=== PATIENT | female | born 1960 | race Caucasian/White ===

== ENCOUNTER → 2020-12-09 18:18 | Outpatient (CLI) | payer MEDICAID, SELFPAY ==
[2020-12-09 20:33] LABS: Alanine Aminotransferase 23 U/L (12-78); Albumin Level 4.1 g/dl (3.5-5.0); Albumin/Globulin Ratio 1.4 (1.1-1.8); Alkaline Phosphatase 92 U/L (38-126); Aspartate Amino Transferase 30 U/L (14-36); Bilirubin,Total 0.3 mg/dl (0.2-1.3); Blood Urea Nitrogen 20 mg/dl (7-17); Calcium 9.7 mg/dl (8.4-10.2); Carbon Dioxide 26 mmol/L (22.0-30.0); Chloride 106 mmol/L (98-107); Chol/HDL Ratio 1.8 (1-3.5); Cholesterol 156 mg/dl (140-200); Estimated Glomerular Filt Rate 102 ml/min (>60); GFR (African American) 123 ML/MIN (>60); Glucose 110 mg/dl (74-100); HDL Cholesterol 87 mg/dl (40-60); Sodium 139 mmol/L (136-145); Total Protein,Serum 7.1 g/dl (6.3-8.2); Triglycerides 46 mg/dl (30-150); VLDL Cholesterol 9 mg/dL (0-40)
[2020-12-09 20:44] LABS: Direct LDL Cholesterol 49.23 mg/dL (100-129)
[2020-12-09 20:51] LABS: Basophils # 0.1 K/mm3 (0-0.2); Basophils % 1.3 % (0.1-2.0); Eosinophils # 0.3 K/mm3 (0.0-0.4); Eosinophils % 3.3 % (0.1-12.0); Hematocrit 40.8 % (37.0-47.0); Hemoglobin 12.9 g/dL (12.2-16.2); Lymphocytes # 2.6 K/mm3 (0.7-4.5); Lymphocytes % 32.1 % (10-50); Mean Corpuscular HGB Conc 31.5 g/dL (31.8-35.4); Mean Corpuscular Volume 101.5 fl (81-99); Mean Platelet Volume 12.4 fl (7.4-10.4); Monocytes # 0.7 K/mm3 (0.1-1.0); Neutrophils # 4.5 K/mm3 (1.8-7.8); Neutrophils % 55.2 % (37.0-80.0); Platelet Count 330 K/mm3 (142-424); Red Blood Count 4.02 M/mm3 (4.20-5.40); Red Cell Distribution Width 14.7 % (11.5-17.5); White Blood Count 8.1 K/mm3 (4.8-10.8)
== END ==
PROVIDERS: Visit Provider Family Medicine
DX: I25.10 Atherosclerotic heart disease of native coronary artery without angina pectoris (principal)
CPT/HCPCS: 80053; 80061; 85025

== ENCOUNTER 2021-10-05 09:28 | Day surgery (SDC) | payer MEDICAID, SELFPAY ==
[2021-10-05] VITALS (14 sets, daily range): BP systolic 102–136; BP diastolic 53–81; PULSE 45–68; RESP 18–19; O2SAT 91–100; BMI 25.9
--- NOTE | 2021-10-05 | IR_ITS ---
APPROVED REPORT Patient Location: Outpatient Sorter/Assay Tech: ANISH Ronquillo RT (R) PROCEDURES Left heart catheterization Left ventriculogram Selective coronary angiogram Left internal mammary angiography Selective engagement saphenous vein graft to the circumflex artery Select engage the saphenous vein graft to the right coronary INDICATION History of coronary bypass surgery, Preoperative evaluation, Abnormal Myoview Informed consent was obtained prior to the procedure. COMPLICATIONS NONE Estimated Blood Loss: LESS THAN 10 ML TECHNIQUE One percent lidocaine used to anesthetize the right groin. The right femoral artery was accessed via the Seldinger technique and a 5 Azerbaijani sheath was placed in the right femoral artery. A JL 4, JR4 catheter were used to perform left heart catheterization, left ventriculogram selective coronary angiography as well as selective engagement of the 2 vein grafts and the left internal mammary artery. At the end of the procedure the patient was transferred to the postop holding area in stable condition for sheath removal. At the end the diagnostic angiogram therapeutic heparin was administered giving a therapeutic ACT and the 4 Azerbaijani sheath was exchanged for a 6 Azerbaijani sheath. An EBU 3.5 guide catheter was placed in the left main artery and a Choice PT extra-support wire was placed distally in the LAD. A 2.5 x 18 mm resolute Dover stent was deployed at 20 mark reducing the severe stenosis to 0%. MIGUEL-3 flow was present before and after the procedure. At the end of the procedure the apparatus was removed the groin was reprepped closure changed sheath was removed good hemostasis was achieved using Perclose device patient transferred to the postop putting her stable condition ANGIOGRAPHIC RESULTS The left main artery Normal The left anterior descending artery Has proximal concentric calcified 30% stenoses followed by mid vessel 40% stenosis followed by a 10 mm focal 90% stenosis with remaining the LAD widely patent. The first diagonal artery has an ostial 80 to 90% stenosis. There is no competitive flow from the left internal mammary artery The circumflex artery Nondominant and proximally occluded. There is a moderate sized ramus intermedius which is patent and a long vessel which has mild proximal 10 to 20% stenoses The right coronary artery Is a dominant vessel and proximally occluded The GREGORY ventriculogram reveals Preserved at 55% The left ventricular end-diastolic pressure 10 mmHg The left internal mammary artery is physiologically proximally occluded The saphenous vein graft to the circumflex arteries widely patent Saphenous vein graft to the dominant right coronary is widely patent IMPRESSION Coronary disease as described above Successful stenting of the mid LAD severe disease reduced to 0% with 1 drug-eluting stent Persistent severe disease in a large first diagonal artery which is best managed medically Preserved ejection fraction Normal left ventricular end-diastolic pressure PLAN 1. Dual antiplatelet therapy 2. Postponement of elective herniorrhaphy surgery 3. LDL less than 55 4. Standard therapy for ischemic heart disease Electronically signed by : Peewee Stephens MD 10/05/2021 13:08:26
[2021-10-05 09:17] LABS: Coronavirus 19, PCR Not Detected (NotDetected); Influenza A, PCR Not Detected (NotDetected); Influenza B, PCR Not Detected (NotDetected)
[2021-10-05 09:22] LABS: Basophils # 0.1 K/mm3 (0-0.2); Basophils % 1.4 % (0.1-2.0); Eosinophils # 0.5 K/mm3 (0.0-0.4); Eosinophils % 6.8 % (0.1-12.0); Hematocrit 42.9 % (37.0-47.0); Hemoglobin 13.6 g/dL (12.2-16.2); Lymphocytes # 2.9 K/mm3 (0.7-4.5); Lymphocytes % 39.4 % (10-50); Mean Corpuscular HGB Conc 31.8 g/dL (31.8-35.4); Mean Corpuscular Hemoglobin 32.2 pg (27.0-31.2); Mean Corpuscular Volume 101.2 fl (81-99); Mean Platelet Volume 7.9 fl (7.4-10.4); Monocytes # 0.5 K/mm3 (0.1-1.0); Monocytes % 6.8 % (1.7-9.3); Neutrophils # 3.4 K/mm3 (1.8-7.8); Neutrophils % 45.7 % (37.0-80.0); Platelet Count 340 K/mm3 (142-424); Red Blood Count 4.24 M/mm3 (4.20-5.40); Red Cell Distribution Width 14.1 % (11.5-17.5); White Blood Count 7.4 K/mm3 (4.8-10.8)
[2021-10-05 09:50] LABS: Anion Gap 10.2 mEq/L (5-15); Blood Urea Nitrogen 21 mg/dl (7-17); Calcium 9.7 mg/dl (8.4-10.2); Carbon Dioxide 28 mmol/L (22.0-30.0); Chloride 106 mmol/L (98-107); Creatinine Clearance Estimated 60 mL/min (50-200); Estimated Glomerular Filt Rate 125 ml/min (>60); GFR (African American) 152 ML/MIN (>60); Glucose 111 mg/dl (74-100); Potassium 5.2 mmoL/L (3.5-5.1); Sodium 139 mmol/L (136-145)
[2021-10-05 14:08] LABS: CATHL Activated Clotting Time 302 SEC (74-125)
--- NOTE | 2021-10-05 15:08 | HMH.PHACLD ---
Siena Virginie has received discharge medication counseling on the following medications: -ASA -ATORVASTATIN -BRILINTA (DISCUSSED HOW TO TAKE, WATCH FOR SIGNS OF BLEEDING, BRUISING, SEEK CARE IF YOU BUMP YOUR HEAD)
== END 2021-10-05 15:16 | disposition home or self-care (01) ==
LOC: CATHLAB 09:29
PROVIDERS: Nurse Practitioner Family; PCP Family Medicine; Referring Provider Specialist; Visit Provider Internal Medicine
DX: I11.9 Hypertensive heart disease without heart failure (principal); E78.2 Mixed hyperlipidemia; I25.10 Atherosclerotic heart disease of native coronary artery without angina pectoris; Z95.1 Presence of aortocoronary bypass graft; Z79.899 Other long term (current) drug therapy; Z20.822 Contact with and (suspected) exposure to COVID-19
CPT/HCPCS: 36415; 80048; 85025; 85347; 92928; 93459; 99152; C1725; C1760; C1769; C1876; C1894; C9600; C9803; J1644; Q9967; U0003; U0005

== ENCOUNTER → 2021-10-19 08:58 | Outpatient (CLI) | payer MEDICAID, SELFPAY ==
[2021-10-19 09:18] LABS: Basophils # 0.1 K/mm3 (0-0.2); Basophils % 1.5 % (0.1-2.0); Eosinophils # 0.4 K/mm3 (0.0-0.4); Hematocrit 44.5 % (37.0-47.0); Hemoglobin 14.3 g/dL (12.2-16.2); Lymphocytes # 2.8 K/mm3 (0.7-4.5); Mean Corpuscular HGB Conc 32.2 g/dL (31.8-35.4); Mean Corpuscular Hemoglobin 31.3 pg (27.0-31.2); Mean Platelet Volume 7.6 fl (7.4-10.4); Monocytes # 0.4 K/mm3 (0.1-1.0); Monocytes % 6.2 % (1.7-9.3); Neutrophils # 3.5 K/mm3 (1.8-7.8); Neutrophils % 48.3 % (37.0-80.0); Platelet Count 447 K/mm3 (142-424); Red Blood Count 4.58 M/mm3 (4.20-5.40); Red Cell Distribution Width 14.4 % (11.5-17.5); White Blood Count 7.2 K/mm3 (4.8-10.8)
[2021-10-19 09:25] LABS: Chloride 105 mmol/L (98-107); Sodium 142 mmol/L (136-145)
[2021-10-19 09:26] LABS: Potassium 5.2 mmoL/L (3.5-5.1)
[2021-10-19 09:29] LABS: Anion Gap 13.2 mEq/L (5-15); Blood Urea Nitrogen 21 mg/dl (7-17); Calcium 9.8 mg/dl (8.4-10.2); Carbon Dioxide 29 mmol/L (22.0-30.0); Estimated Glomerular Filt Rate 125 ml/min (>60); GFR (African American) 152 ML/MIN (>60); Glucose 117 mg/dl (74-100)
== END ==
PROVIDERS: Visit Provider Internal Medicine
DX: I25.10 Atherosclerotic heart disease of native coronary artery without angina pectoris (principal); Z95.5 Presence of coronary angioplasty implant and graft
CPT/HCPCS: 36415; 80048; 85025

== ENCOUNTER → 2022-01-08 17:01 | Outpatient (CLI) | payer MEDICAID, SELFPAY ==
[2022-01-08 14:45] LABS: Alanine Aminotransferase 37 U/L (12-78); Albumin Level 4.9 g/dl (3.5-5.0); Albumin/Globulin Ratio 1.6 (1.1-1.8); Alkaline Phosphatase 102 U/L (38-126); Anion Gap 14.1 mEq/L (5-15); Aspartate Amino Transferase 42 U/L (14-36); Bilirubin,Total 0.4 mg/dl (0.2-1.3); Blood Urea Nitrogen 26 mg/dl (7-17); Calcium 9.6 mg/dl (8.4-10.2); Carbon Dioxide 25 mmol/L (22.0-30.0); Chloride 106 mmol/L (98-107); Chol/HDL Ratio 1.8 (1-3.5); Cholesterol 193 mg/dl (140-200); Estimated Glomerular Filt Rate 125 ml/min (>60); GFR (African American) 152 ML/MIN (>60); Glucose 105 mg/dl (74-100); HDL Cholesterol 108 mg/dl (40-60); Potassium 5.1 mmoL/L (3.5-5.1); Sodium 140 mmol/L (136-145); Total Protein,Serum 7.9 g/dl (6.3-8.2); Triglycerides 43 mg/dl (30-150); VLDL Cholesterol 9 mg/dL (0-40)
== END ==
PROVIDERS: Visit Provider Family Medicine
DX: Z00.00 Encounter for general adult medical examination without abnormal findings (principal); I11.9 Hypertensive heart disease without heart failure; E78.5 Hyperlipidemia, unspecified
CPT/HCPCS: 80053; 80061

== ENCOUNTER → 2023-02-07 23:23 | Outpatient (CLI) | payer MEDICAID, SELFPAY ==
[2023-02-07 19:34] LABS: Chol/HDL Ratio 2.1 (1-3.5); Cholesterol 170 mg/dl (140-200); HDL Cholesterol 82 mg/dl (40-60); Triglycerides 52 mg/dl (30-150); VLDL Cholesterol 10 mg/dL (0-40)
[2023-02-07 19:45] LABS: Direct LDL Cholesterol 61.26 mg/dL (100-129)
== END ==
PROVIDERS: PCP Family Medicine; Visit Provider Family Medicine
DX: E78.5 Hyperlipidemia, unspecified (principal)
CPT/HCPCS: 80061

== ENCOUNTER → 2023-05-13 12:01 | Outpatient (CLI) | payer MEDICAID, SELFPAY ==
--- NOTE | 2023-05-13 | CA_ITS ---
APPROVED REPORT Exam: Exercise Treadmill Technologist: Astrid Bhatti, Ht: 5 ft 2 in Wt: 152 lbs BSA: 1.70 m2 HR: 65 bpm BP: 147/72 mmHg Rhythm: Normal sinus rhythm Medical History Medical History: HTN, , Hyperlipidemia Medications: Aspirin,,,,, Diazepam,,,,, Atorvastatin,,,,, Vit B12,,,,, Ezetimbe,,,,, TicaAGRELOR,,,,, Allergies: No known drug allergies Cardiac Risk Factors: HTN, Hyperlipidemia, Smoking Stress Test Details Test: Armando HR Resting HR: 70 bpm Max Heart Rate (APMHR): 158 bpm Max HR Achieved: 163 bpm Target HR (85% APMHR): 134 bpm % of APMHR: 103 Recovery HR: 86 bpm HR response to stress: Normal HR response to stress BP Resting BP: 147.0/72 mmHg Max BP: 209/93 mmHg Recovery BP: 148.0/72.0 mmHg BP response to stress: Abnormal hypertensive response to stress. ECG Resting ECG: Normal sinus rhythm, nonspecific ST changes in the inferior leads Stress ECG: Wide-complex tachycardia Clinical Exercise duration: 05:58 min Highest Stage Achieved: Exercise capacity: 7.0 METs Overall Exercise Capacity for Age: Average Stress ECG Conclusion MAX HR: 163 % OF PM: 103 MAX BP: 209/93 METS:7.0 TEST STOPPED DUE TO DYSPNEA The patient was able to exercise for 5 minutes and 58 seconds, achieving 7.0 METS. She had an average exercise capacity compared to sex and age matched peers. During stress, she developed an exaggerated hypertensive response to exercise. At baseline, ECG demonstrated normal sinus rhythm with nonspecific T wave changes in the inferior leads. At peak stress, she developed wide-complex tachycardia (which may possibly represent rate-related LBBB, but cannot rule out VT). Subsequently, the exercise was terminated. Stress ECG is suggestive of ischemia. Myoview images are reported separately. Test Summary REST . . . . . . . Standing REST . . . . . . . Sitting REST 03:54 0.0 0.0 70 . 147/ 72 . . Stage 1 01:00 10.0 1.7 96 . . . . Stage 1 02:00 10.0 1.7 126 . . . . Stage 1 03:00 10.0 1.7 135 . 160/ 78 . . Stage 2 01:00 12.0 2.5 146 . . . . Stage 2 02:00 12.0 2.5 161 . . . . Stage 2 02:58 12.0 2.5 154 . 190/ 70 . Stop exercise at 05:58 RECOVERY 01:00 0.0 0.0 146 . . . . RECOVERY 02:00 0.0 0.0 127 . . . . RECOVERY 03:00 0.0 0.0 95 . 198/ 89 . . RECOVERY 04:00 0.0 0.0 84 . 198/ 89 . . RECOVERY 05:00 0.0 0.0 89 . 183/ 71 . . RECOVERY 06:00 0.0 0.0 85 . 183/ 71 . . RECOVERY 07:00 0.0 0.0 90 . 156/ 69 . . RECOVERY 08:00 0.0 0.0 85 . 148/ 72 . . RECOVERY 08:08 0.0 0.0 89 . 148/ 72 . . Electronically signed by : Linsey Hunter, 05/16/2023 02:16:15
--- NOTE | 2023-05-13 12:01 | NM_ITS ---
APPROVED REPORT Exam: Nuclear Stress Test Indication: palpitations..fatigue Patient Location: Outpatient Stress Tech: Astrid Bhatti [place] Tech:Jennifer Ng FIDELFabby RT(R)(N) Ht: 5 ft 2 in Wt: 151 lbs Bra Size: 40d HR: 70 bpm BP: 147/72 mmHg BSA: 1.70 m2 Rhythm: Normal sinus rhythm TID: 1.01 BMI: 27.6 History: palpitations..fatigue Procedure: Patient exercised on Armando protocol 5:58 minutes and sec, resting heart rate 70 bpm, resting blood pressure 147/72 mmHg, with exercise maximum heart rate achived was 163 bpm which is 103 % of the maximum predicted heart rate and blood pressure was 209/93 mmHg. Test was stopped due to fatigue. Patient denied any complaint of chest pain. Patient has Average exercise capacity, achieved 7.0 METs of workload on treadmill, the blood pressure response to exercise was Exaggerated. Cardiac Stress and Resting SPECT Images: Cardiac Stress and Resting SPECT images were obtained using technetium 99m Myoview 32.4 mCi stress and 10.94 mCi at rest. Resting and stress imaging in both supine and prone positions demonstrate a medium sized, moderate, partially reversible perfusion defect in the mid to distal anterior and anteroseptal LV wall. Gated imaging demonstrates mild to moderate reduction in global LV systolic function. There is moderate hypokinesis in the anterior and anteroseptal LV wall. LVEF is calculated at 40%. Conclusion: Medium sized, moderate, partially reversible perfusion defect in the mid to distal anterior and anteroseptal LV wall. Gated imaging demonstrates mild to moderate reduction in global LV systolic function. There is moderate hypokinesis in the anterior and anteroseptal LV wall. LVEF is calculated at 40%. Electronically signed by : Linsey Hunter, 05/16/2023 02:22:50
== END ==
PROVIDERS: PCP Family Medicine; Visit Provider Nurse Practitioner Family
DX: I25.10 Atherosclerotic heart disease of native coronary artery without angina pectoris (principal); R53.83 Other fatigue; Z95.1 Presence of aortocoronary bypass graft
CPT/HCPCS: 78452; 93017; 93306; A9502

== ENCOUNTER 2023-05-25 08:59 | Day surgery (SDC) | payer MEDICAID, SELFPAY ==
[2023-05-25] VITALS (11 sets, daily range): BP systolic 116–136; BP diastolic 59–76; PULSE 53–87; RESP 18–20; TEMP 37; O2SAT 97–100; BMI 28.0
--- NOTE | 2023-05-25 07:12 | IR_ITS ---
APPROVED REPORT Patient Location: Outpatient PROCEDURES Left heart catheterization Left ventriculogram Selective coronary angiogram Selective engagement saphenous vein graft to circumflex artery Selective engagement saphenous vein graft to the right coronary INDICATION Coronary artery disease, Worsening angina pectoris, History of coronary bypass surgery, Informed consent was obtained prior to the procedure. COMPLICATIONS None Estimated Blood Loss: Less than 10 mls TECHNIQUE One percent lidocaine used to anesthetize the right anterior aspect of the wrist. The right radial artery was accessed via the Seldinger technique. A 6 Thai sheath was placed in the right radial artery. 150 mg magnesium sulfate, 800 mcg of nitroglycerin, 1mg Lidocaine and 5000 U Heparin were given through the arterial sheath. The papa catheter was also used to perform left heart catheterization, left ventriculogram and selective coronary angiogram. The same catheter was used to perform selective engagement of the saphenous vein graft to the circumflex artery and right coronary. At the end of the procedure the sheath was removed good hemostasis was achieved using Traclet band, patient was transferred to the postop holding area in stable condition. ANGIOGRAPHIC RESULTS The left main artery Normal The left anterior descending artery Has proximal 20 to 30% stenosis followed by mid vessel stents which are widely patent with minimal in-stent restenosis. A large first diagonal artery has proximal concentric 40% stenosis. The vessel was 2.5 mm in diameter The circumflex artery Is a nondominant vessel and gives rise to a moderate-sized first obtuse marginal artery which has mild atheromatous plaque nothing greater than 30%. The circumflex artery is then occluded after the ramus intermedius The right coronary artery Proximally occluded The GREGORY ventriculogram reveals Mild left ventricular dilatation ejection fraction 45% The left ventricular end-diastolic pressure 15 mmHg TALAMANTES to LAD is known to be occluded on previous angiography Saphenous vein graft to circumflex artery is widely patent. Distal to the anastomosis is a small solitary obtuse marginal branch Saphenous vein graft to the distal dominant right coronary is widely patent. IMPRESSION Adequate surgical and percutaneous revascularization as described above Mild left ventricular dilatation with ejection fraction 45% Borderline LVEDP PLAN 1. Continue medical management with aggressive risk factor modification Electronically signed by : Peewee Stephens MD 05/25/2023 14:07:47
[2023-05-25 09:55] LABS: Basophils # 0.1 K/mm3 (0-0.2); Basophils % 1.5 % (0.1-2.0); Eosinophils # 0.5 K/mm3 (0.0-0.4); Eosinophils % 7.6 % (0.1-12.0); Hematocrit 45.9 % (37.0-47.0); Lymphocytes # 2.8 K/mm3 (0.7-4.5); Lymphocytes % 39.4 % (10-50); Mean Corpuscular HGB Conc 30.6 g/dL (31.8-35.4); Mean Corpuscular Hemoglobin 30.4 pg (27.0-31.2); Mean Corpuscular Volume 99.6 fl (81-99); Mean Platelet Volume 7.9 fl (7.4-10.4); Monocytes # 0.6 K/mm3 (0.1-1.0); Monocytes % 9.1 % (1.7-9.3); Neutrophils % 42.4 % (37.0-80.0); Platelet Count 346 K/mm3 (142-424); Red Blood Count 4.61 M/mm3 (4.20-5.40); Red Cell Distribution Width 14.5 % (11.5-17.5)
[2023-05-25 09:56] LABS: Chloride 106 mmol/L (98-107); Potassium 4.4 mmoL/L (3.5-5.1); Sodium 141 mmol/L (136-145)
[2023-05-25 09:59] LABS: Anion Gap 12.4 mEq/L (5-15); Blood Urea Nitrogen 22 mg/dl (7-17); Calcium 9.2 mg/dl (8.4-10.2); Carbon Dioxide 27 mmol/L (22.0-30.0); Creatinine Clearance Estimated 64 mL/min (50-200); Estimated Glomerular Filt Rate 101 ml/min (>60); GFR (African American) 123 ML/MIN (>60); Glucose 118 mg/dl (74-100)
[2023-05-25 10:00] LABS: INR 0.95 (0.9-1.1); Prothrombin Time 10.3 seconds (10.1-12.5)
== END 2023-05-25 15:14 | disposition home or self-care (01) ==
PROVIDERS: PCP Family Medicine; Visit Provider Internal Medicine
DX: I25.118 Atherosclerotic heart disease of native coronary artery with other forms of angina pectoris (principal); E78.2 Mixed hyperlipidemia; I11.9 Hypertensive heart disease without heart failure; I44.7 Left bundle-branch block, unspecified; I47.20 Ventricular tachycardia, unspecified; R94.39 Abnormal result of other cardiovascular function study; Z95.1 Presence of aortocoronary bypass graft; Z87.891 Personal history of nicotine dependence; Z79.899 Other long term (current) drug therapy
CPT/HCPCS: 80048; 85025; 85610; 93459; 99152; C1725; C1769; J1644; Q9967

== ENCOUNTER 2024-02-09 21:12 | Outpatient (CLI) | payer MEDICAID, SELFPAY ==
[2024-02-09 18:41] LABS: Basophils # 0.1 K/mm3 (0-0.2); Basophils % 1.2 % (0.1-2.0); Eosinophils # 0.3 K/mm3 (0.0-0.4); Eosinophils % 4.5 % (0.1-12.0); Hemoglobin 14.1 g/dL (12.2-16.2); Mean Corpuscular HGB Conc 31.3 g/dL (31.8-35.4); Mean Corpuscular Volume 102.4 fl (81-99); Mean Platelet Volume 12.9 fl (7.4-10.4); Monocytes # 0.6 K/mm3 (0.1-1.0); Monocytes % 9.1 % (1.7-9.3); Neutrophils # 2.9 K/mm3 (1.8-7.8); Neutrophils % 42.2 % (37.0-80.0); Platelet Count 307 K/mm3 (142-424); Red Cell Distribution Width 14.1 % (11.5-17.5); White Blood Count 6.8 K/mm3 (4.8-10.8)
[2024-02-09 18:48] LABS: Alanine Aminotransferase 27 U/L (12-78); Albumin Level 4.4 g/dl (3.5-5.0); Albumin/Globulin Ratio 1.5 (1.1-1.8); Alkaline Phosphatase 102 U/L (38-126); Anion Gap 9.7 mEq/L (5-15); Aspartate Amino Transferase 38 U/L (14-36); Bilirubin,Total 0.3 mg/dl (0.2-1.3); Blood Urea Nitrogen 27 mg/dl (7-17); Calcium 9.9 mg/dl (8.4-10.2); Carbon Dioxide 27 mmol/L (22.0-30.0); Chloride 107 mmol/L (98-107); Chol/HDL Ratio 2.6 (1-3.5); Cholesterol 225 mg/dl (140-200); Estimated Glomerular Filt Rate 85 ml/min (>60); GFR (African American) 102 ML/MIN (>60); Globulin 2.9 g/dL (1.3-3.2); Glucose 126 mg/dl (74-100); HDL Cholesterol 85 mg/dl (40-60); Potassium 4.7 mmoL/L (3.5-5.1); Sodium 139 mmol/L (136-145); Total Protein,Serum 7.3 g/dl (6.3-8.2); Triglycerides 55 mg/dl (30-150); VLDL Cholesterol 11 mg/dL (0-40)
[2024-02-09 18:59] LABS: Direct LDL Cholesterol 92.65 mg/dL (100-129)
== END 2024-02-09 23:59 ==
LOC: LAB.DROPOF 21:12
PROVIDERS: PCP Family Medicine; Visit Provider Family Medicine
DX: F41.9 Anxiety disorder, unspecified (principal); I25.10 Atherosclerotic heart disease of native coronary artery without angina pectoris; Z79.899 Other long term (current) drug therapy; E78.5 Hyperlipidemia, unspecified
CPT/HCPCS: 80053; 80061; 85025

== ENCOUNTER 2025-02-07 09:38 | Outpatient (CLI) | payer OTHER, SELFPAY ==
[2025-02-07 18:53] LABS: Basophils # 0.1 K/mm3 (0-0.2); Basophils % 1.2 % (0.1-2.0); Eosinophils # 0.1 K/mm3 (0.0-0.4); Eosinophils % 1.5 % (0.1-12.0); Hematocrit 42.6 % (37.0-47.0); Hemoglobin 13.7 g/dL (12.2-16.2); Lymphocytes % 24.8 % (10-50); Mean Corpuscular HGB Conc 32.2 g/dL (31.8-35.4); Mean Corpuscular Hemoglobin 30.8 pg (27.0-31.2); Mean Corpuscular Volume 95.7 fl (81-99); Mean Platelet Volume 13.1 fl (7.4-10.4); Monocytes # 0.8 K/mm3 (0.1-1.0); Monocytes % 9.7 % (1.7-9.3); Neutrophils % 62.6 % (37.0-80.0); Platelet Count 365 K/mm3 (142-424); Red Blood Count 4.45 M/mm3 (4.20-5.40); Red Cell Distribution Width 15.2 % (11.5-17.5); White Blood Count 8.1 K/mm3 (4.8-10.8)
[2025-02-07 19:39] LABS: Albumin Level 4.9 g/dl (3.5-5.0); Chloride 105 mmol/L (98-107); Potassium 5.6 mmoL/L (3.5-5.1); Sodium 138 mmol/L (136-145)
[2025-02-07 20:01] LABS: HIV Combo NEGATIVE (Negative)
[2025-02-07 20:09] LABS: Hepatitis C Ab Qual. W/ RFX NEGATIVE (Negative)
[2025-02-07 20:31] LABS: Thyroid Stimulating Hormone 1.29 uIU/mL (0.465-4.68)
[2025-02-07 21:12] LABS: Alanine Aminotransferase 34 U/L (12-78); Albumin/Globulin Ratio 1.6 (1.1-1.8); Alkaline Phosphatase 112 U/L (38-126); Anion Gap 18.6 mEq/L (5-15); Aspartate Amino Transferase 38 U/L (14-36); Bilirubin,Total 0.2 mg/dl (0.2-1.3); Blood Urea Nitrogen 29 mg/dl (7-17); Carbon Dioxide 20 mmol/L (22.0-30.0); Chol/HDL Ratio 2.5 (1-3.5); Cholesterol 214 mg/dl (140-200); Estimated Glomerular Filt Rate 72 ml/min (>60); GFR (African American) 87 ML/MIN (>60); Glucose 118 mg/dl (74-100); HDL Cholesterol 86 mg/dl (40-60); Total Protein,Serum 7.9 g/dl (6.3-8.2); Triglycerides 60 mg/dl (30-150); VLDL Cholesterol 12 mg/dL (0-40)
[2025-02-07 21:25] LABS: Direct LDL Cholesterol 88.46 mg/dL (100-129)
== END 2025-02-07 23:59 | disposition home or self-care (01) ==
LOC: LAB.DROPOF 02-08 10:12
PROVIDERS: PCP Family Medicine; Visit Provider Family Medicine
DX: R53.83 Other fatigue (principal); I11.9 Hypertensive heart disease without heart failure; E78.2 Mixed hyperlipidemia; Z11.59 Encounter for screening for other viral diseases
CPT/HCPCS: 80053; 80061; 84443; 85025; 86803; 87389

== ENCOUNTER 2025-08-26 10:41 | Outpatient (CLI) | payer MEDICARE, SELFPAY ==
--- OUTSIDE RECORDS SUMMARY | 2025-08-26 10:49 | XMS_ITS | Clinical Summary ---
Author Organization Healthcare Address [address] [id number] Care Team Providers Care Camera Maker Name Role Phone Eliezer Gant MD Primary Care Provider [phone] Family History Medical History Relation Name Comments Conversions - Other Father CAD (cor onary artery disease), [place] coronary artery Diabetes Father Alzheimer's disease Mother Sick sinus syndrome Mother Lung cancer Sister Relation Name Status Comments Father Mother Sister Social History Tobacco Use Types Packs/Day Years Used Date Smoking Tobacco: Every Day Alcohol Use Standard Drinks/Week Comments Yes 0 (1 standard drink = 0.6 oz pur e alcohol) Comments Unknown Sex and Gender Information Value Date Recorded Sex Assigned at Not on file Legal Sex Female 6:27 PM EDT Gender Identity Not on file Sexual Orientation Not on file Last Filed Vital Signs Vital Sign Reading Time Taken Comments Blood Pressure 123/74 05/13/2023 3:04 PM EDT Pulse 77 05/13/2023 3:04 PM EDT Temperature - - Respiratory Rate - - Oxygen Saturation - - Inhaled Oxygen Concentration - - Weight 68.9 kg (152 lb) 05/13/2023 3:04 PM EDT Height 157.5 cm (5' 2 ) 05/13/2023 3:04 PM EDT Body Mass Index 27.8 05/13/2023 3:04 PM EDT Plan of Treatment Health Maintenance Due Date Last Done Comments [facility]-Bone Density Scan 1960 [facility]-Depression Screening 1960 [facility]-Infant/Child/Adol SDOH Screenings 1960 [facility]- SDOH Screenings 1978 [facility]-Adult SDOH Screenings 1978 [facility]-Pap Smear 1981 [facility]-Cervical Cancer Screening 1990 [facility]-HPV/Cotest 1990 CT Colonography 2005 Colonoscopy 2005 FIT-DNA 2005 FIT 2005 FOBT 2005 Sigmoidoscopy 2005 [facility]-Colorectal Cancer Screening 2005 [facility]-Zoster Vaccines (1 of 2) 2010 [id number] Vaccine (6 - season) 2025 10/27/2022, 03/10/2022, 10/07/2021, Additional history exists [facility]-Influenza Vaccine (#1) 07/29/202508/10, 11/12/2016, 11/24/2015, Additional history exists [facility]-Pneumococcal Vaccine: 50+ Years (3 of 3 - PCV20 or PCV21) 09/09/2025 09/09/2020, 12/16/2017 [facility]-DTaP,Tdap,and Td Vaccines (2 - Td or Tdap) 09/09/2030 09/09/2020 [facility]-RSV Vaccine: 60+ Years or (1 - 1-dose 75+ series) 2035 HPV Vaccines Aged Out No longer eligi ble based on patient's age to complete this topic [facility]-HIB Vaccines Aged Out No longer e ligible based on patient's age to complete this topic [facility]-Hepatitis A Vaccines Aged Out No longer eligible based on patient's age to complete this topic [facility]-IPV Vaccines Aged Out No longer e ligible based on patient's age to complete this topic [facility]-Rotavirus Vaccines Aged Out No lo nger eligible based on patient's age to complete this topic Insurance [facility] [place] MEDICA[place] Care Teams Camera Maker Relationship Specialty Start Date End Date Eliezer Gant MD PCP - General 04/10/21
== END 2025-08-26 23:59 | disposition home or self-care (01) ==
LOC: RT 10:42
PROVIDERS: PCP Family Medicine; Visit Provider Nurse Practitioner Family
DX: I49.1 Atrial premature depolarization (principal); I47.19 Other supraventricular tachycardia; I49.3 Ventricular premature depolarization; I25.10 Atherosclerotic heart disease of native coronary artery without angina pectoris; I44.7 Left bundle-branch block, unspecified
CPT/HCPCS: 93270; 93272

== ENCOUNTER 2025-09-10 10:52 | Outpatient (CLI) | payer MEDICARE, SELFPAY ==
--- NOTE | 2025-09-10 | CA_ITS ---
APPROVED REPORT Exam: Pharmacologic Technologist: Quyen Eaton Stress Nurse: TUSHAR Meadows, RN Ht: 5 ft 2 in Wt: 151 lbs BSA: 1.70 m2 HR: 52 bpm BP: 156/91 mmHg Indications: Known coronary artery disease, chest pain Stress Test Details Test: Lexiscan HR Resting HR: 52 bpm Max Heart Rate (APMHR): 155 bpm Max HR Achieved: 82 bpm Target HR (85% APMHR): 132 bpm % of APMHR: 53 Recovery HR: 61 bpm BP Resting BP: 156.0/91.0 mmHg Max BP: 161.0/69.0 mmHg Recovery BP: 149.0/59.0 mmHg ECG Resting ECG: Normal sinus rhythm and rate related left bundle branch block Stress ECG Conclusion Lungs clear to auscultation Symptoms: Dizziness Arrhythmias/Ectopy: PVC ST-T Changes: Less than 0.[address] segment changes. Conclusion: Nondiagnostic ECG/Lexiscan Electronically signed by : Linsey Hunter MD 09/11/2025 12:38:51
--- OUTSIDE RECORDS SUMMARY | 2025-09-10 10:54 | XMS_ITS | Clinical Summary ---
Author Organization Healthcare Address [address] [id number] Care Team Providers Care Side Stitcher Name Role Phone Elizeer Gant MD Primary Care Provider [phone] Family History Medical History Relation Name Comments Conversions - Other Father CAD (cor onary artery disease), [place] coronary artery Diabetes Father Alzheimer's disease Mother [...] 2005 [facility]-Zoster Vaccines (1 of 2) 2010 [id number] Vaccine (6 - season) 2025 10/27/2022, 03/10/2022, [...] patient's age to complete this topic Insurance [facility] [employer] MEDICAID Care Teams Side Stitcher Relationship Specialty Start Date End Date Eliezer Gant MD PCP - General 04/10/21
--- OUTSIDE RECORDS SUMMARY | 2025-09-10 10:54 | XMS_ITS ---
Author Organization Unknown TREATMENT PLAN Planned Care Start Date Provider Encounter for Check-up [phone] [facility]
--- NOTE | 2025-09-10 11:30 | NM_ITS ---
APPROVED REPORT Exam: Nuclear Stress Test Indication: CAD, CABG, High cholesterol, Family history, Chest pain Patient Location: Outpatient Stress Tech: Quyen Eaton [place] Tech:Whitney Cortes, ARRT, RT (R)(N) Ht: 5 ft 0 in Wt: 149 lbs Bra Size: 42D HR: 54 bpm BP: 156/91 mmHg BSA: 1.65 m2 TID: 1.09 History: CAD, CABG, High cholesterol, Family history, Chest pain Procedure: Patient received 0.4 mg of intravenous Lexiscan, resting heart rate 54 bpm, resting blood pressure 156/91 mmHg, with maximum heart rate achieved was 88 bpm which is % of the maximum predicted heart rate and blood pressure was 161/69 mmHg. With Lexiscan, patient denied any complaint of chest pain. Cardiac Stress and Resting SPECT Images: Cardiac Stress and Resting SPECT images were obtained using technetium 99m Myoview 32.8 mCi stress and 10.48 mCi at rest. Resting and stress imaging in supine and prone positions demonstrate a medium sized, moderate, predominantly reversible perfusion defect in the basal to mid inferior LV amor. Gated imaging demonstrates moderate reduction in global LV systolic function. LVEF is calculated at 31%. Conclusion: Medium sized, moderate, predominantly reversible perfusion defect in the basal to mid inferior LV amor. Findings are suggestive of partial reversible ischemia. Gated imaging demonstrates moderate reduction in global LV systolic function. LVEF is calculated at 31%. Correlation with new or recent TTE is suggested. Electronically signed by : Linsey Hunter MD 09/11/2025 12:47:14
[2025-09-10 12:30] VITALS: BP 156/91; PULSE 52; RESP 14
[2025-09-10] MEDS: SODIUM CHLORIDE 0.9% 10ML SYR (RAD ONLY) 10 ML IV ×2 (12:55)
[2025-09-10] MEDS: ISOTOPE MYOVIEW (PER STUDY) 1 DOSE IV (12:55)
== END 2025-09-10 23:59 | disposition home or self-care (01) ==
LOC: RAD 10:53
PROVIDERS: PCP Family Medicine; Visit Provider Nurse Practitioner Family
DX: I49.3 Ventricular premature depolarization (principal); I25.10 Atherosclerotic heart disease of native coronary artery without angina pectoris; I44.7 Left bundle-branch block, unspecified; E78.00 Pure hypercholesterolemia, unspecified; R94.39 Abnormal result of other cardiovascular function study; R94.31 Abnormal electrocardiogram [ECG] [EKG]; R00.0 Tachycardia, unspecified; Z95.1 Presence of aortocoronary bypass graft
CPT/HCPCS: 78452; 93017; 93018; A9502; J2785

== ENCOUNTER 2025-09-30 08:08 | Outpatient (CLI) | payer MEDICARE, SELFPAY ==
[2025-09-30] MEDS: DEFINITY US ECHO CONTRAST 2ML INJ 2 MG IV (09:10)
--- NOTE | 2025-09-30 11:00 | CA_ITS ---
APPROVED REPORT EXAM: Comprehensive 2D, Doppler, and color-flow Echocardiogram Beater Room Supervisor: Trinidad Keys RT(R) Ht: 5 ft 2 in Wt: 154lbs BSA: 1.71 BP: 142/60 mmHg Indications: abn stress test, chest pain, HFrEF on stress, LBBB, CAD, hx CABG, hx cardiomyopathy. Echo Enhancing Agent Indication: Endocardial border delineation Agent(s) / Amount(s) Used: Definity 2 cc 2D Dimensions LVEF (Braxton's) 43.70 % F: 54 - 74 LV Volume 148.90 mL F: 46 - 106 LV Volume Index 87.1 mL/m2 F: 29 - 61 LA Volume 29.20 mL LA Volume Index 17.08 mL/m2 (M/F) 16-34 EF AP4 42.70 % EF AP2 45.0 % EF BP 43.7 % GL Strain -14.9 % M-Mode Dimensions RVDd 3.21 cm (0.9-2.6) LA Diam 3.85 cm (1.9-4.0) LVDd 5.82 cm (3.5-5.7) LVDs 4.46 cm (3.5-5.7) IVSd 0.79 cm (0.6-1.1) PWd 0.79 cm (0.6-1.1) EF (Teich) 46.10% FS 23.40% EDV (Teich) 167.90 mL TAPSE 1.78 (<1.7) ESV (Teich) 90.50 mL LV Diastology E Decel Time 203 (160-240 msec) E/A Ratio 1.0 Mitral Valve MV E Max Amado. 99.0 (40-130 cm/s) MV A Velocity 101.0 (40-130 cm/s) E/A Ratio 0.98 MV PHT 60.0 ms Tricuspid Valve TR P. Velocity 258.00 cm/s RAP Estimate 10.00 mmHg RVSP 36.50 mmHg Left Ventricle The left ventricle is normal size. Left ventricular systolic function is severely reduced. There is increased left ventricular wall thickness. There is severe global hypokinesis present. The left ventricular diastolic function is normal. No left ventricle thrombus noted on this study. LVEF is 25-30% Right Ventricle The right ventricle is mildly dilated. The right ventricular systolic function is mildly reduced. Atria The left atrium is mildly dilated. Right atrium is mildly dilated. There is no color Doppler evidence of interatrial shunt. Aortic Valve The aortic valve is mildly thickened. There is no hemodynamically significant aortic valvular stenosis. Trace aortic regurgitation is present. Mitral Valve The mitral valve is normal in structure. No evidence of mitral valve stenosis. Mild mitral regurgitation is present. Tricuspid Valve The tricuspid valve leaflets are thin and pliable. Mild tricuspid regurgitation. RVSP is 30-35 mmHg. Pulmonic Valve The pulmonary valve is grossly normal in structure. Trace pulmonic valve regurgitation is present. Great Vessels The aortic root is normal in size. IVC is normal in size and collapses >50% with inspiration. Pericardium There is no pericardial effusion. Other Information Study Quality: Fair Conclusion Severe reduction in LV systolic function (LVEF 25-30%). Mild RV dilation with mild reduction in RV function. Mild biatrial dilation. Mild MR, mild TR. Electronically signed by : Linsey Hunter MD 10/02/2025 00:24:57
== END 2025-09-30 23:59 | disposition home or self-care (01) ==
LOC: RT 08:09
PROVIDERS: PCP Family Medicine; Visit Provider Nurse Practitioner Family
DX: I08.1 Rheumatic disorders of both mitral and tricuspid valves (principal); I50.20 Unspecified systolic (congestive) heart failure; I25.5 Ischemic cardiomyopathy; R94.39 Abnormal result of other cardiovascular function study; I44.7 Left bundle-branch block, unspecified; I25.118 Atherosclerotic heart disease of native coronary artery with other forms of angina pectoris; Z95.1 Presence of aortocoronary bypass graft
CPT/HCPCS: 93306; Q9957

== ENCOUNTER 2025-10-07 08:16 | Day surgery (SDC) | payer MEDICARE, SELFPAY ==
[2025-10-07] VITALS (12 sets, daily range): BP systolic 110–141; BP diastolic 46–67; PULSE 42–55; RESP 18–20; TEMP 36.1–36.9; O2SAT 92–97; BMI 28.1
--- NOTE | 2025-10-07 07:17 | IR_ITS ---
APPROVED REPORT Patient Location: Outpatient PROCEDURES Left heart catheterization Left ventriculogram Selective coronary angiogram Selective engagement of the saphenous vein graft to the circumflex artery Selective engagement of the saphenous vein graft to the right coronary Informed consent was obtained prior to the procedure. COMPLICATIONS NONE Estimated Blood Loss: LESS THAN 10 ML TECHNIQUE One percent lidocaine used to anesthetize the right anterior aspect of the wrist. The right radial artery was accessed via the Seldinger technique. A 6 Kosovan sheath was placed in the right radial artery. 2.5 mg of Verapamil, 800 mcg of nitroglycerin, 1mg Lidocaine and 5000 U Heparin were given through the arterial sheath. The JL3 catheter was also used to perform left heart catheterization, left ventriculogram and selective coronary angiogram. Same catheter was used to perform selective engagement of the saphenous vein graft to the circumflex artery and selective engagement of saphenous vein graft to the right coronary artery. The TALAMANTES graft was noted to be occluded and was therefore not engaged ANGIOGRAPHIC RESULTS The left main artery Normal The left anterior descending artery Has proximal 20 and 30% stenosis followed by mid vessel stent which is widely patent with mild concentric in-stent restenosis with excellent proximal and distal transitioning. A large first diagonal artery has a proximal 40% stenosis The circumflex artery Gives rise to a medium size ramus intermedius which has proximal 40 and 30% stenosis. The circumflex artery is then occluded after the ramus intermedius The right coronary artery Is occluded just distal to an RV marginal. The RV marginal has concentric 80 to 90% proximal stenosis The GREGORY ventriculogram reveals Preserved at 55% The left ventricular end-diastolic pressure 15 mmHg TALAMANTES graft is known to be occluded by previous angiography Saphenous vein graft to small distal obtuse marginal artery is patent Saphenous vein graft to distal dominant right coronary artery is widely patent. At anastomosis onto a large posterior descending artery and then backfills a large posterolateral branch IMPRESSION Coronary artery disease as described above Preserved ejection fraction Normal LVEDP PLAN 1. Recommend referral to for further evaluation of COPD and lung disease 2. LDL less than 55 to be achieved at high intensity statin 3. Medical management for coronary disease 4. Recommend absolute tobacco cessation Electronically signed by : Peewee Stephens MD 10/09/2025 10:35:39
[2025-10-07 08:41] LABS: Hematocrit 39.1 % (37.0-47.0); Hemoglobin 13.1 g/dL (12.2-16.2); Immature Granulocytes % 0.2 %; Mean Corpuscular HGB Conc 33.5 g/dL (31.8-35.4); Mean Corpuscular Hemoglobin 32.1 pg (27.0-31.2); Mean Corpuscular Volume 95.8 fl (81-99); Nucleated Red Blood Cells % 0 %; Platelet Count 333 K/mm3 (142-424); Red Blood Count 4.08 M/mm3 (4.20-5.40); Red Cell Distribution Width-SD 51.7 fL; White Blood Count 8.4 K/mm3 (4.8-10.8)
[2025-10-07 08:56] LABS: Anion Gap 12.0 mEq/L (5-15); Blood Urea Nitrogen 26 mg/dl (7-17); Calcium 9.4 mg/dl (8.4-10.2); Carbon Dioxide 23 mmol/L (22.0-30.0); Chloride 106 mmol/L (98-107); Creatinine Clearance Estimated 62 mL/min (50-200); Creatinine,Serum 0.70 mg/dl (0.52-1.04); Estimated Glomerular Filt Rate 84 ml/min (>60); GFR (African American) 102 ML/MIN (>60); Glucose 115 mg/dl (74-100); Potassium 4.0 mmoL/L (3.5-5.1); Sodium 137 mmol/L (136-145)
[2025-10-07] MEDS: NITROGLYCERIN 800MCG/8ML SYR (CATH LAB) 800 MCG IA (10:32)
[2025-10-07] MEDS: LIDOCAINE 1% 10ML MDV 10 ML IJ (10:32)
[2025-10-07] MEDS: HEPARIN 1,000 UNITS/500ML NS (CATH LAB) 3000 UNIT IV (10:32)
[2025-10-07] MEDS: HEPARIN 1,000 UNITS/ML 10ML VIAL (CATH LAB) 5000 UNIT IV (10:32)
[2025-10-07] MEDS: VERAPAMIL 2.5MG/ML 2ML VIAL 2.5 MG IV (10:33)
[2025-10-07] MEDS: 0.9 % SODIUM CHLORIDE 500 ML 25 ML IV (10:33)
[2025-10-07] MEDS: FENTANYL 100MCG/2ML VIAL 50 MCG IV (11:06)
[2025-10-07] MEDS: MIDAZOLAM HCL 1MG/ML 5ML VIAL 1 MG IV (11:06)
--- NOTE | 2025-10-07 13:52 | SUR.PHASEII ---
DR LOCO NOTIFIED OF EKG VARIANCES
[2025-10-07] MEDS: IOPAMIDOL-370 (76%);100ML BOTTLE 50 ML IV (15:06)
== END 2025-10-07 13:53 | disposition home or self-care (01) ==
LOC: CATHLAB 08:17
PROVIDERS: PCP Family Medicine; Visit Provider Internal Medicine
PROC: 4A023N7 Measurement of Cardiac Sampling and Pressure, Left Heart, Percutaneous Approach (ICD-10-PCS; CPT 93452; principal; 2025-10-07 08:30)
DX: I25.118 Atherosclerotic heart disease of native coronary artery with other forms of angina pectoris (principal); I25.5 Ischemic cardiomyopathy; I50.20 Unspecified systolic (congestive) heart failure; I11.0 Hypertensive heart disease with heart failure; I42.9 Cardiomyopathy, unspecified; R94.39 Abnormal result of other cardiovascular function study; I44.7 Left bundle-branch block, unspecified; R00.2 Palpitations; E78.2 Mixed hyperlipidemia; Z95.1 Presence of aortocoronary bypass graft; Z82.49 Family history of ischemic heart disease and other diseases of the circulatory system; Z87.891 Personal history of nicotine dependence; Z79.82 Long term (current) use of aspirin; Z79.899 Other long term (current) drug therapy; Z88.8 Allergy status to other drugs, medicaments and biological substances
CPT/HCPCS: 80048; 85025; 93459; 99152; C1725; C1769; J1200; J1644; J2704; J3010; J7040; Q9967

== ENCOUNTER 2025-10-22 09:46 | Outpatient (CLI) | payer MEDICARE, SELFPAY ==
--- OUTSIDE RECORDS SUMMARY | 2025-10-22 09:50 | XMS_ITS | Data Portability ---
Author Organization [place] - [facility] Address [address] [place] [address] Assessment Encounter Date Assessment Date Assessment LastModified by Organization Details LastModified Time 03/21/2017 03/21/2017 slated to see cardiol statin/zetia some myalgia zetia is generic now last [id number] offset by excellent hdl cath'd w/o stent deployments stable w/o isch features s/p splenectomy urgently following blunt abdom trauma pvax 2013 post-op symptomatic remotely after injury ppt by endoscopy in her opinion sneus Not available 03/21/2017 08:37:03 12/16/2017 12/16/2017 The patient was advised to continue a healthy diet and exercise regularly. She also was advised to: have a mammogram . Labs will be sent to evaluate blood count, renal function lipids and vitamin D. Appt. scheduled with for follow up Dec.26. Prevnar [email or web address] Not available 12/16/2017 13:26:13 03/17/2018 03/17/2018 CABG March 4 vessel Follows with Reviewed Carotid Duplex Artery results Anxiety Rx refill Valium 10 mg 1 po TID #90 No signs or symptoms of adverse effects noted.Jackson reviewed and appropriate. [email or web address] Not available 03/17/2018 09:02:07 06/14/2018 06/14/2018 Medicare Annual wellness CABG last summer residual pain no ischemia episodic swelling aggressive lipid regimen euvolemic lee well controlled Lipid,CBC,TSH, CMP today Refill Valium 10 mg [email or web address] Not available 06/14/2018 09:36:40 Plan of Treatment Reminders Order Date Submit Date Provider Last Modified By Organization Details Last Modified Time Details Appointments None recorded. Lab lipid panel, serum 2017 018 GELA [facility], [address], [place] [address], [place], [address], 8 08:48:06 CMP, serum or plasma 2017 018 GELA [facility], [address], [place] [address], [place], [address], 8 08:48:05 TSH + free T4, serum 2017 018 GELA [facility], [address], [address], [place], [address], 8 08:48:04 CBC w/ auto diff 2017 018 GELA [facility], [address], [place] [address], [place], [address], 8 08:48:04 hepatitis C Ab, signal-to-c utoff, serum or plasma 2017 018 GELA [facility], [address], [address], [place], [address], 8 09:37:11 lipid panel, serum 2017 018 GELA [facility], [address], [place], [place], [address], 8 09:37:11 CMP, serum or plasma 2017 018 GELA [facility], [address], [address], [place], [address], 8 09:37:10 CBC w/ auto diff 2016 017 sneus [facility], [address], [address], [place], [address], 7 09:17:46 CMP, serum or plasma 2016 017 sneus [facility], [address], [place] [address], [place], [address], 7 09:17:46 lipid panel, serum 2016 017 [email or web address] [facility], [address], [address], [place], [address], 7 09:17:46 lipid panel, serum 2016 017 GELA [facility], [address], [address], [place], [address], 7 09:16:27 CMP, serum or plasma 2016 017 GELA [facility], [address], [address], [place], [address], 7 09:16:27 CBC w/ auto diff 2016 017 GELA [facility], [address], [address], [place], [address], 7 09:16:26 Referral None recorded. Procedures None recorded. Surgeries None recorded. Imaging XR, chest, 2 view 2017 [address] [place] [address], [address] [place], [address], 8 10:07:58 MAMMO, screening, bilateral 2016 017 colt [facility] (Centralized Scheduling), [address] [place] [address] , [place], [address], 7 11:49:19 Medication Orders Valium 10 mg tablet 2017 018 Not available 8 08:09:35 Valium 10 mg tablet 2017 018 Not available 8 08:09:35 [email or web address] n 80 mg tablet 2017 018 [email or web address] Not available 8 08:32:58 spironolact one 50 mg tablet 2017 018 Not available 8 08:18:27 Valium 10 mg tablet 2017 018 Not available 8 08:09:35 Patient TargetsNo targets recorded. Patient Instructions Encounter Date Encounter Id Patient Instructions Last Modified By Organization Details Last Modified Time 03/21/2017 [id number] mammogram: about this test sneus Not available 03/21/2017 09:16:31 09/16/2017 [id number] pt. in for lab, definitive exam is not preformed, follow with DR. Gant. [email or web address] Not available 09/18/2017 09:55:38 12/16/2017 [id number] upper respirator y infection (cold): care instructions sneus Not available 12/16/2017 09:34:18 A healthy lifestyle: care instructions sneus Not available 12/16/2017 09:34:18 03/17/2018 [id number] A healthy lifestyle: care instructions sneus Not available 03/17/2018 09:02:22 Reason for Referral None Reported. Results Created Date Observation Date Name Description Value Unit Range Abnormal Flag Note LastModifiedBy Organization Detail LastModifiedTime 03/21/20 17 03/22/2017 CBC w/ auto diff WBC 8.7 x10e3 /uL 3.4-10 .8 Not Available [facility] ([facility]) [address] [place], [address], 03/22/2017 09:16:26 03/21/2003/22/2017 CBC w/ auto diff RBC 4.65 x10e6 /uL 3.77-5 .28 Not Available [facility] ([facility]) [address] [facility], [place], [address], 03/22/2017 09:16:26 03/21/20 17 03/22/2017 CBC w/ auto diff hemoglobin 14.8 g/dL 11.1-1 5.9 Not Available [facility] ([facility]) [address] [place], [address], 03/22/2017 09:16:26 03/21/20 17 03/22/2017 CBC w/ auto diff hematocrit 44.6 % 34.0-4 6.6 Not Available [facility] ([facility]) [address] [place], [address], 03/22/2017 09:16:26 03/21/20 17 03/22/2017 CBC w/ auto diff MCV 96 fL 79-97 Not Available [facility] ([facility]) [address] [place], [address], 03/22/2017 09:16:26 03/21/20 17 03/22/2017 CBC w/ auto diff MCH 31.8 pg 26.6-3 3.0 Not Available [facility] ([facility]) [address] [place], [address], 03/22/2017 09:16:26 03/21/20 17 03/22/2017 CBC w/ auto diff MCHC 33.2 g/dL 31.5-3 5.7 Not Available [facility] ([facility]) [address] [place], [address], 03/22/2017 09:16:26 03/21/20 17 03/22/2017 CBC w/ auto diff RDW 15.1 % 12.3-1 5.4 Not Available [facility] ([facility]) [address] [place], [address], 03/22/2017 09:16:26 03/21/20 17 03/22/2017 CBC w/ auto diff platelets 367 x10e3 /uL 150-37 9 Not Available [facility] ([facility]) [address] [place], [address], 03/22/2017 09:16:26 03/21/20 17 03/22/2017 CBC w/ auto diff neutrophils 42 % Not Available [facility] ([facility]) [address] [place], [address], 03/22/2017 09:16:26 03/21/20 17 03/22/2017 CBC w/ auto diff lymphs 38 % Not Available [facility] ([facility]) [address] [place], [address], 03/22/2017 09:16:26 03/21/20 17 03/22/2017 CBC w/ auto diff monocytes 11 % Not Available [facility] ([facility]) [address] [place], [address], 03/22/2017 09:16:26 03/21/20 17 03/22/2017 CBC w/ auto diff eos 8 % Not Available [facility] ([facility]) [address] [place], [address], 03/22/2017 09:16:26 03/21/20 17 03/22/2017 CBC w/ auto diff basos 1 % Not Available [facility] ([facility]) [address] [place], [address], 03/22/2017 09:16:26 03/21/20 17 03/22/2017 CBC w/ auto diff immature cells BISQUE TILE BURNER Not Available [facility] ([facility]) [address] [place], [address], 03/22/2017 09:16:26 03/21/20 17 03/22/2017 CBC w/ auto diff neutrophils (absolute) 3.6 x10e3 /uL 1.4-7. 0 Not Available [facility] ([facility]) [address] [place], [address], 03/22/2017 09:16:26 03/21/20 17 03/22/2017 CBC w/ auto diff lymphs (absolute) 3.4 x10e3 /uL 0.7-3. 1 above high normal Not Available [facility] ([facility]) [address] [place], [address], 03/22/2017 09:16:26 03/21/20 17 03/22/2017 CBC w/ auto diff monocytes(ab solute) 1.0 x10e3 /uL 0.1-0. 9 above high normal Not Available [facility] ([facility]) [address] [place], [address], 03/22/2017 09:16:26 03/21/20 17 03/22/2017 CBC w/ auto diff eos (absolute) 0.7 x10e3 /uL 0.0-0. 4 above high normal Not Available [facility] ([facility]) [address] [place], [address], 03/22/2017 09:16:26 03/21/20 17 03/22/2017 CBC w/ auto diff baso (absolute) 0.1 x10e3 /uL 0.0-0. 2 Not Available [facility] ([facility]) [address] [place], [address], 03/22/2017 09:16:26 03/21/20 17 03/22/2017 CBC w/ auto diff immature granulocytes 0 % Not Available [facility] ([facility]) [address] [place], [address], 03/22/2017 09:16:26 03/21/20 17 03/22/2017 CBC w/ auto diff immature grans (abs) 0.0 x10e3 /uL 0.0-0. 1 Not Available [facility] ([facility]) [address] [place], [address], 03/22/2017 09:16:26 03/21/20 17 03/22/2017 CBC w/ auto diff NRBC BISQUE TILE BURNER Not Available [facility] ([facility]) [address] [place], [address], 03/22/2017 09:16:26 03/21/20 17 03/22/2017 CBC w/ auto diff hematology comments: BISQUE TILE BURNER Not Available [facility] ([facility]) [address] [place], [address], 03/22/2017 09:16:26 03/21/20 17 03/22/2017 CMP, serum or plasm a glucose, serum 123 mg/dL 65-99 above high normal Not Available [facility] ([facility]) [address] [place], [address], 03/22/2017 09:16:27 03/21/20 17 03/22/2017 CMP, serum or plasm a BUN 17 mg/dL 6-24 Not Available [facility] ([facility]) [address] [place], [address], 03/22/2017 09:16:27 03/21/20 17 03/22/2017 CMP, serum or plasm a creatinine, serum 0.56 mg/dL 0.57-1 .00 below low normal Not Available [facility] ([facility]) [address] [place], [address], 03/22/2017 09:16:27 03/21/20 17 03/22/2017 CMP, serum or plasm a eGFR if nonafricn AM 105 mL/mi n/1.7 3 >59 Not Available [facility] ([facility]) [address] [place], [address], 03/22/2017 09:16:27 03/21/20 17 03/22/2017 CMP, serum or plasm a eGFR if africn AM 121 mL/mi n/1.7 3 >59 Not Available [facility] ([facility]) [address] [place], [address], 03/22/2017 09:16:27 03/21/20 17 03/22/2017 CMP, serum or plasm a BUN/creatini ne ratio 30 9-23 above high normal Not Available [facility] ([facility]) [address] [place], [address], 03/22/2017 09:16:27 03/21/20 17 03/22/2017 CMP, serum or plasm a sodium, serum 140 mmol/ L 134-14 4 Not Available [facility] ([facility]) [address] [place], [address], 03/22/2017 09:16:27 03/21/20 17 03/22/2017 CMP, serum or plasm a potassium, serum 5.1 mmol/ L 3.5-5. 2 Not Available [facility] ([facility]) [address] [place], [address], 03/22/2017 09:16:27 03/21/20 17 03/22/2017 CMP, serum or plasm a chloride, serum 101 mmol/ L 96-106 Not Available [facility] ([facility]) [address] [place], [address], 03/22/2017 09:16:27 03/21/20 17 03/22/2017 CMP, serum or plasm a carbon dioxide, total 21 mmol/ L 18-29 Not Available [facility] ([facility]) [address] [place], [address], 03/22/2017 09:16:27 03/21/2003/22/2017 CMP, serum or plasm a calcium, serum 9.5 mg/dL 8.7-10 .2 Not Available [facility] ([facility]) [address] [place], [address], 03/22/2017 09:16:27 03/21/2003/22/2017 CMP, serum or plasm a protein, total, serum 7.1 g/dL 6.0-8. 5 Not Available [facility] ([facility]) [address] [place], [address], 03/22/2017 09:16:27 03/21/2003/22/2017 CMP, serum or plasm a albumin, serum 4.5 g/dL 3.5-5. 5 Not Available [facility] ([facility]) [address] [place], [address], 03/22/2017 09:16:27 03/21/20 17 03/22/2017 CMP, serum or plasm a globulin, total 2.6 g/dL 1.5-4. 5 Not Available [facility] ([facility]) [address] [place], [address], 03/22/2017 09:16:27 03/21/20 17 03/22/2017 CMP, serum or plasm a A/G ratio 1.7 1.2-2. 2 Not Available [facility] ([facility]) [address] [place], [address], 03/22/2017 09:16:27 03/21/2003/22/2017 CMP, serum or plasm a bilirubin, total <0.2 mg/dL 0.0-1. 2 Not Available [facility] ([facility]) [address] [place], [address], 03/22/2017 09:16:27 03/21/20 17 03/22/2017 CMP, serum or plasm a alkaline phosphatase, S 80 IU/L 39-117 Not Available [facility] ([facility]) [address] [place], [address], 03/22/2017 09:16:27 03/21/20 17 03/22/2017 CMP, serum or plasm a AST (SGOT) 21 IU/L 0-40 Not Available [facility] ([facility]) [address] [place], [address], 03/22/2017 09:16:27 03/21/20 17 03/22/2017 CMP, serum or plasm a ALT (SGPT) 19 IU/L 0-32 Not Available [facility] ([facility]) [address] [place], [address], 03/22/2017 09:16:27 03/21/20 17 03/22/2017 lipid panel , serum cholesterol, total 190 mg/dL 100-19 9 Not Available [facility] ([facility]) [address] [place], [address], 03/22/2017 09:16:27 03/21/20 17 03/22/2017 lipid panel , serum triglyceride s 49 mg/dL 0-149 Not Available [facility] ([facility]) [address] [place], [address], 03/22/2017 09:16:27 03/21/20 17 03/22/2017 lipid panel , serum HDL cholesterol 71 mg/dL >39 Not Available [facility] ([facility]) [address] [place], [address], 03/22/2017 09:16:27 03/21/20 17 03/22/2017 lipid panel , serum VLDL cholesterol jose elias 10 mg/dL 5-40 Not Available [facility] ([facility]) [address] [facility], [place], [address], 03/22/2017 09:16:27 03/21/20 17 03/22/2017 lipid panel , serum LDL cholesterol calc 109 mg/dL 0-99 above high normal Not Available [facility] ([facility]) [address] [place], [address], 03/22/2017 09:16:27 03/21/20 17 03/22/2017 lipid panel , serum comment: BISQUE TILE BURNER Not Available [facility] ([facility]) [address] [place], [address], 03/22/2017 09:16:27 09/16/20 17 09/17/2017 CBC w/ auto diff WBC 9.6 x10e3 /uL 3.4-10 .8 Not Available [facility] ([facility]) [address] [place], [address], 09/17/2017 06:36:35 09/16/20 17 09/17/2017 CBC w/ auto diff RBC 4.75 x10e6 /uL 3.77-5 .28 Not Available [facility] ([facility]) [address] [facility], [place], [address], 09/17/2017 06:36:35 09/16/20 17 09/17/2017 CBC w/ auto diff hemoglobin 13.6 g/dL 11.1-1 5.9 Not Available [facility] ([facility]) [address] [facility], [place], [address], 09/17/2017 06:36:35 09/16/20 17 09/17/2017 CBC w/ auto diff hematocrit 42.3 % 34.0-4 6.6 Not Available [facility] ([facility]) [address] [facility], [place], [address], 09/17/2017 06:36:35 09/16/20 17 09/17/2017 CBC w/ auto diff MCV 89 fL 79-97 Not Available [facility] ([facility]) [address] [facility], [place], [address], 09/17/2017 06:36:35 09/16/20 17 09/17/2017 CBC w/ auto diff MCH 28.6 pg 26.6-3 3.0 Not Available [facility] ([facility]) [address] [facility], [place], [address], 09/17/2017 06:36:35 09/16/20 17 09/17/2017 CBC w/ auto diff MCHC 32.2 g/dL 31.5-3 5.7 Not Available [facility] ([facility]) [address] [place], [address], 09/17/2017 06:36:35 09/16/20 17 09/17/2017 CBC w/ auto diff RDW 18.5 % 12.3-1 5.4 above high normal Not Available [facility] ([facility]) [address] [place], [address], 09/17/2017 06:36:35 10/20/09/17/2017 CBC w/ auto diff platelets 407 x10e3 /uL 150-37 9 above high normal Not Available [facility] ([facility]) [address] [place], [address], 09/17/2017 06:36:35 09/16/20 17 09/17/2017 CBC w/ auto diff neutrophils 50 % not estab. Not Available [facility] ([facility]) [address] [facility], [place], [address], 09/17/2017 06:36:35 09/16/20 17 09/17/2017 CBC w/ auto diff lymphs 34 % not estab. Not Available [facility] ([facility]) [address] [place], [address], 09/17/2017 06:36:35 09/16/20 17 09/17/2017 CBC w/ auto diff monocytes 11 % not estab. Not Available [facility] ([facility]) [address] [place], [address], 09/17/2017 06:36:35 09/16/20 17 09/17/2017 CBC w/ auto diff eos 4 % not estab. Not Available [facility] ([facility]) [address] [facility], [place], [address], 09/17/2017 06:36:35 09/16/20 17 09/17/2017 CBC w/ auto diff basos 1 % not estab. Not Available [facility] ([facility]) [address] [facility], [place], [address], 09/17/2017 06:36:35 09/16/20 17 09/17/2017 CBC w/ auto diff immature cells BISQUE TILE BURNER Not Available [facility] ([facility]) [address] [place], [address], 09/17/2017 06:36:35 09/16/20 17 09/17/2017 CBC w/ auto diff neutrophils (absolute) 4.8 x10e3 /uL 1.4-7. 0 Not Available [facility] ([facility]) [address] [facility], [place], [address], 09/17/2017 06:36:35 09/16/20 17 09/17/2017 CBC w/ auto diff lymphs (absolute) 3.3 x10e3 /uL 0.7-3. 1 above high normal Not Available [facility] ([facility]) [address] [facility], [place], [address], 09/17/2017 06:36:35 09/16/20 17 09/17/2017 CBC w/ auto diff monocytes(ab solute) 1.0 x10e3 /uL 0.1-0. 9 above high normal Not Available [facility] ([facility]) [address] [place], [address], 09/17/2017 06:36:35 09/16/20 17 09/17/2017 CBC w/ auto diff eos (absolute) 0.4 x10e3 /uL 0.0-0. 4 Not Available [facility] ([facility]) [address] [facility], [place], [address], 09/17/2017 06:36:35 09/16/20 17 09/17/2017 CBC w/ auto diff baso (absolute) 0.1 x10e3 /uL 0.0-0. 2 Not Available [facility] ([facility]) [address] [place], [address], 09/17/2017 06:36:35 09/16/20 17 09/17/2017 CBC w/ auto diff immature granulocytes 0 % not estab. Not Available [facility] ([facility]) [address] [place], [address], 09/17/2017 06:36:35 09/16/20 17 09/17/2017 CBC w/ auto diff immature grans (abs) 0.0 x10e3 /uL 0.0-0. 1 Not Available [facility] ([facility]) [address] [place], [address], 09/17/2017 06:36:35 09/16/20 17 09/17/2017 CBC w/ auto diff NRBC BISQUE TILE BURNER Not Available [facility] ([facility]) [address] [place], [address], 09/17/2017 06:36:35 09/16/20 17 09/17/2017 CBC w/ auto diff hematology comments: BISQUE TILE BURNER Not Available [facility] ([facility]) [address] [place], [address], 09/17/2017 06:36:35 09/16/20 17 09/17/2017 CMP, serum or plasm a glucose, serum 115 mg/dL 65-99 above high normal Not Available [facility] ([facility]) [address] [place], [address], 09/17/2017 06:36:36 09/16/20 17 09/17/2017 CMP, serum or plasm a BUN 25 mg/dL 6-24 above high normal Not Available [facility] ([facility]) [address] [place], [address], 09/17/2017 06:36:36 09/16/20 17 09/17/2017 CMP, serum or plasm a creatinine, serum 0.74 mg/dL 0.57-1 .00 Not Available [facility] ([facility]) [address] [place], [address], 09/17/2017 06:36:36 09/16/20 17 09/17/2017 CMP, serum or plasm a eGFR if nonafricn AM 90 mL/mi n/1.7 3 >59 Not Available [facility] ([facility]) [address] [place], [address], 09/17/2017 06:36:36 09/16/20 17 09/17/2017 CMP, serum or plasm a eGFR if africn AM 104 mL/mi n/1.7 3 >59 Not Available [facility] ([facility]) [address] [place], [address], 09/17/2017 06:36:36 09/16/20 17 09/17/2017 CMP, serum or plasm a BUN/creatini ne ratio 34 9-23 above high normal Not Available [facility] ([facility]) [address] [place], [address], 09/17/2017 06:36:36 09/16/20 17 09/17/2017 CMP, serum or plasm a sodium, serum 139 mmol/ L 134-14 4 Not Available [facility] ([facility]) [address] [place], [address], 09/17/2017 06:36:36 09/16/2009/17/2017 CMP, serum or plasm a potassium, serum 5.2 mmol/ L 3.5-5. 2 Not Available [facility] ([facility]) [address] [place], [address], 09/17/2017 06:36:36 09/16/20 17 09/17/2017 CMP, serum or plasm a chloride, serum 97 mmol/ L 96-106 Not Available [facility] ([facility]) [address] [place], [address], 09/17/2017 06:36:36 09/16/20 17 09/17/2017 CMP, serum or plasm a carbon dioxide, total 25 mmol/ L 18-29 Not Available [facility] ([facility]) [address] [place], [address], 09/17/2017 06:36:36 09/16/2009/17/2017 CMP, serum or plasm a calcium, serum 10.3 mg/dL 8.7-10 .2 above high normal Not Available [facility] ([facility]) [address] [place], [address], 09/17/2017 06:36:36 09/16/20 17 09/17/2017 CMP, serum or plasm a protein, total, serum 7.8 g/dL 6.0-8. 5 Not Available [facility] ([facility]) [address] [place], [address], 09/17/2017 06:36:36 09/16/20 17 09/17/2017 CMP, serum or plasm a albumin, serum 4.8 g/dL 3.5-5. 5 Not Available [facility] ([facility]) [address] [place], [address], 09/17/2017 06:36:36 09/16/2009/17/2017 CMP, serum or plasm a globulin, total 3.0 g/dL 1.5-4. 5 Not Available [facility] ([facility]) [address] [place], [address], 09/17/2017 06:36:36 09/16/20 17 09/17/2017 CMP, serum or plasm a A/G ratio 1.6 1.2-2. 2 Not Available [facility] ([facility]) [address] [place], [address], 09/17/2017 06:36:36 09/16/20 17 09/17/2017 CMP, serum or plasm a bilirubin, total 0.2 mg/dL 0.0-1. 2 Not Available [facility] ([facility]) [address] [place], [address], 09/17/2017 06:36:36 09/16/20 17 09/17/2017 CMP, serum or plasm a alkaline phosphatase, S 95 IU/L 39-117 Not Available [facility] ([facility]) [address] [place], [address], 09/17/2017 06:36:36 09/16/20 17 09/17/2017 CMP, serum or plasm a AST (SGOT) 30 IU/L 0-40 Not Available [facility] ([facility]) [address] [facility] [place], [address], 09/17/2017 06:36:36 09/16/20 17 09/17/2017 CMP, serum or plasm a ALT (SGPT) 23 IU/L 0-32 Not Available [facility] ([facility]) [address] [place], [address], 09/17/2017 06:36:36 09/16/20 17 09/17/2017 lipid panel , serum cholesterol, total 213 mg/dL 100-19 9 above high normal Not Available [facility] ([facility]) [address] [place], [address], 09/17/2017 06:36:37 09/16/2009/17/2017 lipid panel , serum triglyceride s 65 mg/dL 0-149 Not Available [facility] ([facility]) [address] [place], [address], 09/17/2017 06:36:37 09/16/2009/17/2017 lipid panel , serum HDL cholesterol 76 mg/dL >39 Not Available [facility] ([facility]) [address] [place], [address], 09/17/2017 06:36:37 09/16/20 17 09/17/2017 lipid panel , serum VLDL cholesterol jose elias 13 mg/dL 5-40 Not Available [facility] ([facility]) [address] [place], [address], 09/17/2017 06:36:37 09/16/20 17 09/17/2017 lipid panel , serum LDL cholesterol calc 124 mg/dL 0-99 above high normal Not Available [facility] ([facility]) [address] [place], [address], 09/17/2017 06:36:37 09/16/20 17 09/17/2017 lipid panel , serum comment: BISQUE TILE BURNER Not Available [facility] ([facility]) [address] [place], [address], 09/17/2017 06:36:37 12/16/19 18 12/17/2017 CMP, serum or plasm a glucose, serum 111 mg/dL 65-99 above high normal Not Available [facility] ([facility]) [address] [place], [address], 12/17/2017 09:37:10 12/16/19 18 12/17/2017 CMP, serum or plasm a BUN 20 mg/dL 6-24 Not Available [facility] ([facility]) [address] [place], [address], 12/17/2017 09:37:10 12/16/19 18 12/17/2017 CMP, serum or plasm a creatinine, serum 0.71 mg/dL 0.57-1 .00 Not Available [facility] ([facility]) [address] [place], [address], 12/17/2017 09:37:10 12/16/19 18 12/17/2017 CMP, serum or plasm a eGFR if nonafricn AM 95 mL/mi n/1.7 3 >59 Not Available [facility] ([facility]) [address] [place], [address], 12/17/2017 09:37:10 12/16/19 18 12/17/2017 CMP, serum or plasm a eGFR if africn AM 109 mL/mi n/1.7 3 >59 Not Available [facility] ([facility]) [address] [place], [address], 12/17/2017 09:37:10 12/16/19 18 12/17/2017 CMP, serum or plasm a BUN/creatini ne ratio 28 9-23 above high normal Not Available [facility] ([facility]) [address] [place], [address], 12/17/2017 09:37:10 12/16/19 18 12/17/2017 CMP, serum or plasm a sodium, serum 141 mmol/ L 134-14 4 Not Available [facility] ([facility]) [address] [place], [address], 12/17/2017 09:37:10 12/16/19 18 12/17/2017 CMP, serum or plasm a potassium, serum 5.1 mmol/ L 3.5-5. 2 Not Available [facility] ([facility]) [address] [place], [address], 12/17/2017 09:37:10 12/16/19 18 12/17/2017 CMP, serum or plasm a chloride, serum 101 mmol/ L 96-106 Not Available [facility] ([facility]) [address] [place], [address], 12/17/2017 09:37:10 12/16/19 18 12/17/2017 CMP, serum or plasm a carbon dioxide, total 26 mmol/ L 18-29 Not Available [facility] ([facility]) [address] [place], [address], 12/17/2017 09:37:10 12/16/19 18 12/17/2017 CMP, serum or plasm a calcium, serum 10.3 mg/dL 8.7-10 .2 above high normal Not Available [facility] ([facility]) [address] [place], [address], 12/17/2017 09:37:10 12/16/1912/17/2017 CMP, serum or plasm a protein, total, serum 7.4 g/dL 6.0-8. 5 Not Available [facility] ([facility]) [address] [place], [address], 12/17/2017 09:37:10 12/16/19 18 12/17/2017 CMP, serum or plasm a albumin, serum 4.5 g/dL 3.5-5. 5 Not Available [facility] ([facility]) [address] [place], [address], 12/17/2017 09:37:10 12/16/19 18 12/17/2017 CMP, serum or plasm a globulin, total 2.9 g/dL 1.5-4. 5 Not Available [facility] ([facility]) [address] [place], [address], 12/17/2017 09:37:10 12/16/19 18 12/17/2017 CMP, serum or plasm a A/G ratio 1.6 1.2-2. 2 Not Available [facility] ([facility]) [address] [place], [address], 12/17/2017 09:37:10 12/16/19 18 12/17/2017 CMP, serum or plasm a bilirubin, total 0.3 mg/dL 0.0-1. 2 Not Available [facility] ([facility]) [address] [place], [address], 12/17/2017 09:37:10 12/16/19 18 12/17/2017 CMP, serum or plasm a alkaline phosphatase, S 93 IU/L 39-117 Not Available [facility] ([facility]) [address] [place], [address], 12/17/2017 09:37:10 12/16/19 18 12/17/2017 CMP, serum or plasm a AST (SGOT) 27 IU/L 0-40 Not Available [facility] ([facility]) [address] [place], [address], 12/17/2017 09:37:10 12/16/19 18 12/17/2017 CMP, serum or plasm a ALT (SGPT) 27 IU/L 0-32 Not Available [facility] ([facility]) [address] [place], [address], 12/17/2017 09:37:10 12/16/19 18 12/17/2017 lipid panel , serum cholesterol, total 188 mg/dL 100-19 9 Not Available [facility] ([facility]) [address] [place], [address], 12/17/2017 09:37:11 12/16/19 18 12/17/2017 lipid panel , serum triglyceride s 68 mg/dL 0-149 Not Available [facility] ([facility]) [address] [place], [address], 12/17/2017 09:37:11 12/16/19 18 12/17/2017 lipid panel , serum HDL cholesterol 74 mg/dL >39 Not Available [facility] ([facility]) [address] [place], [address], 12/17/2017 09:37:11 12/16/19 18 12/17/2017 lipid panel , serum VLDL cholesterol jose elias 14 mg/dL 5-40 Not Available [facility] ([facility]) [address] [place], [address], 12/17/2017 09:37:11 12/16/19 18 12/17/2017 lipid panel , serum LDL cholesterol calc 100 mg/dL 0-99 above high normal Not Available [facility] ([facility]) [address] [place], [address], 12/17/2017 09:37:11 12/16/19 18 12/17/2017 lipid panel , serum comment: BISQUE TILE BURNER Not Available [facility] ([facility]) [address] [place], [address], 12/17/2017 09:37:11 12/16/19 18 12/17/2017 hepat itis C Ab, signa l-to- cutof f, serum or plasm a hep C virus Ab 0.1 s/co_ ratio 0.0-0. 9 Negat irena: < 0.8 Indet ermin ate: 0.8 - 0.9 Posit irena: > 0.9 The CDC recom mends that a posit irena HCV antib amy resul t be follo wed up with a HCV Nucle ic Acid Ampli ficat ion test (5507 13). Not Available [facility] ([facility]) [address] [place], [address], 12/17/2017 09:37:11 06/14/20 18 06/15/2018 TSH + free T4, serum TSH 1.450 uIU/m L 0.450- 4.500 Not Available [facility] ([facility]) [address] [place], [address], 06/15/2018 08:48:04 06/14/2006/15/2018 TSH + free T4, serum T4,free(dire ct) 1.28 NG/dL 0.82-1 .77 Not Available [facility] ([facility]) [address] [place], [address], 06/15/2018 08:48:04 06/14/20 18 06/15/2018 CBC w/ auto diff WBC 8.3 x10e3 /uL 3.4-10 .8 Not Available [facility] ([facility]) [address] [place], [address], 06/15/2018 08:48:04 06/14/2006/15/2018 CBC w/ auto diff RBC 4.16 x10e6 /uL 3.77-5 .28 Not Available [facility] ([facility]) [address] [place], [address], 06/15/2018 08:48:04 06/14/2006/15/2018 CBC w/ auto diff hemoglobin 13.0 g/dL 11.1-1 5.9 Not Available [facility] ([facility]) [address] [place], [address], 06/15/2018 08:48:04 06/14/2006/15/2018 CBC w/ auto diff hematocrit 39.8 % 34.0-4 6.6 Not Available [facility] ([facility]) [address] [place], [address], 06/15/2018 08:48:04 06/14/20 18 06/15/2018 CBC w/ auto diff MCV 96 fL 79-97 Not Available [facility] ([facility]) [address] [facility] [place], [address], 06/15/2018 08:48:04 06/14/20 18 06/15/2018 CBC w/ auto diff MCH 31.3 pg 26.6-3 3.0 Not Available [facility] ([facility]) [address] [facility], [place], [address], 06/15/2018 08:48:04 06/14/20 18 06/15/2018 CBC w/ auto diff MCHC 32.7 g/dL 31.5-3 5.7 Not Available [facility] ([facility]) [address] [facility] [place], [address], 06/15/2018 08:48:04 06/14/20 18 06/15/2018 CBC w/ auto diff RDW 14.3 % 12.3-1 5.4 Not Available [facility] ([facility]) [address] [facility] [place], [address], 06/15/2018 08:48:04 06/14/20 18 06/15/2018 CBC w/ auto diff platelets 390 x10e3 /uL 150-37 9 above high normal Not Available [facility] ([facility]) [address] [place], [address], 06/15/2018 08:48:04 06/14/20 18 06/15/2018 CBC w/ auto diff neutrophils 36 % not estab. Not Available [facility] ([facility]) [address] [place], [address], 06/15/2018 08:48:04 06/14/20 18 06/15/2018 CBC w/ auto diff lymphs 45 % not estab. Not Available [facility] ([facility]) [address] [place], [address], 06/15/2018 08:48:04 06/14/20 18 06/15/2018 CBC w/ auto diff monocytes 12 % not estab. Not Available [facility] ([facility]) [address] [place], [address], 06/15/2018 08:48:04 06/14/20 18 06/15/2018 CBC w/ auto diff eos 6 % not estab. Not Available [facility] ([facility]) [address] [place], [address], 06/15/2018 08:48:04 06/14/20 18 06/15/2018 CBC w/ auto diff basos 1 % not estab. Not Available [facility] ([facility]) [address] [place], [address], 06/15/2018 08:48:04 06/14/2006/15/2018 CBC w/ auto diff immature cells BISQUE TILE BURNER Not Available [facility] ([facility]) [address] [place], [address], 06/15/2018 08:48:04 06/14/2006/15/2018 CBC w/ auto diff neutrophils (absolute) 3.0 x10e3 /uL 1.4-7. 0 Not Available [facility] ([facility]) [address] [place], [address], 06/15/2018 08:48:04 06/14/2006/15/2018 CBC w/ auto diff lymphs (absolute) 3.7 x10e3 /uL 0.7-3. 1 above high normal Not Available [facility] ([facility]) [address] [place], [address], 06/15/2018 08:48:04 06/14/20 18 06/15/2018 CBC w/ auto diff monocytes(ab solute) 1.0 x10e3 /uL 0.1-0. 9 above high normal Not Available [facility] ([facility]) [address] [facility] [place], [address], 06/15/2018 08:48:04 06/14/2006/15/2018 CBC w/ auto diff eos (absolute) 0.5 x10e3 /uL 0.0-0. 4 above high normal Not Available [facility] ([facility]) [address] [facility] [place], [address], 06/15/2018 08:48:04 06/14/2006/15/2018 CBC w/ auto diff baso (absolute) 0.1 x10e3 /uL 0.0-0. 2 Not Available [facility] ([facility]) [address] [facility] [place], [address], 06/15/2018 08:48:04 06/14/20 18 06/15/2018 CBC w/ auto diff immature granulocytes 0 % not estab. Not Available [facility] ([facility]) [address] [facility] [place], [address], 06/15/2018 08:48:04 06/14/2006/15/2018 CBC w/ auto diff immature grans (abs) 0.0 x10e3 /uL 0.0-0. 1 Not Available [facility] ([facility]) [address] [facility], [place], [address], 06/15/2018 08:48:04 06/14/2006/15/2018 CBC w/ auto diff NRBC BISQUE TILE BURNER Not Available [facility] ([facility]) [address] [facility], [place], [address], 06/15/2018 08:48:04 06/14/2006/15/2018 CBC w/ auto diff hematology comments: BISQUE TILE BURNER Not Available [facility] ([facility]) [address] [facility], [place], [address], 06/15/2018 08:48:04 06/14/2006/15/2018 CMP, serum or plasm a glucose 109 mg/dL 65-99 above high normal Not Available [facility] ([facility]) [address] [place], [address], 06/15/2018 08:48:05 06/14/20 18 06/15/2018 CMP, serum or plasm a BUN 23 mg/dL 6-24 Not Available [facility] ([facility]) [address] [place], [address], 06/15/2018 08:48:05 06/14/2006/15/2018 CMP, serum or plasm a creatinine 0.65 mg/dL 0.57-1 .00 Not Available [facility] ([facility]) [address] [place], [address], 06/15/2018 08:48:05 06/14/20 18 06/15/2018 CMP, serum or plasm a eGFR if nonafricn AM 99 mL/mi n/1.7 3 >59 Not Available [facility] ([facility]) [address] [place], [address], 06/15/2018 08:48:05 06/14/2006/15/2018 CMP, serum or plasm a eGFR if africn AM 114 mL/mi n/1.7 3 >59 Not Available [facility] ([facility]) [address] [place], [address], 06/15/2018 08:48:05 06/14/20 18 06/15/2018 CMP, serum or plasm a BUN/creatini ne ratio 35 9-23 above high normal Not Available [facility] ([facility]) [address] [place], [address], 06/15/2018 08:48:05 06/14/2006/15/2018 CMP, serum or plasm a sodium 141 mmol/ L 134-14 4 Not Available [facility] ([facility]) [address] [place], [address], 06/15/2018 08:48:05 06/14/20 18 06/15/2018 CMP, serum or plasm a potassium 5.0 mmol/ L 3.5-5. 2 Not Available [facility] ([facility]) [address] [place], [address], 06/15/2018 08:48:05 06/14/2006/15/2018 CMP, serum or plasm a chloride 103 mmol/ L 96-106 Not Available [facility] ([facility]) [address] [place], [address], 06/15/2018 08:48:05 06/14/2006/15/2018 CMP, serum or plasm a carbon dioxide, total 24 mmol/ L 20-29 Not Available [facility] ([facility]) [address] [place], [address], 06/15/2018 08:48:05 06/14/2006/15/2018 CMP, serum or plasm a calcium 9.5 mg/dL 8.7-10 .2 Not Available [facility] ([facility]) [address] [place], [address], 06/15/2018 08:48:05 06/14/2006/15/2018 CMP, serum or plasm a protein, total 6.4 g/dL 6.0-8. 5 Not Available [facility] ([facility]) [address] [place], [address], 06/15/2018 08:48:05 06/14/2006/15/2018 CMP, serum or plasm a albumin 4.1 g/dL 3.5-5. 5 Not Available [facility] ([facility]) [address] [place], [address], 06/15/2018 08:48:05 06/14/2006/15/2018 CMP, serum or plasm a globulin, total 2.3 g/dL 1.5-4. 5 Not Available [facility] ([facility]) [address] [facility] [place], [address], 06/15/2018 08:48:05 06/14/20 18 06/15/2018 CMP, serum or plasm a A/G ratio 1.8 1.2-2. 2 Not Available [facility] ([facility]) [address] [place], [address], 06/15/2018 08:48:05 06/14/20 18 06/15/2018 CMP, serum or plasm a bilirubin, total <0.2 mg/dL 0.0-1. 2 Not Available [facility] ([facility]) [address] [place], [address], 06/15/2018 08:48:05 06/14/20 18 06/15/2018 CMP, serum or plasm a alkaline phosphatase 90 IU/L 39-117 Not Available [facility] ([facility]) [address] [place], [address], 06/15/2018 08:48:05 06/14/20 18 06/15/2018 CMP, serum or plasm a AST (SGOT) 28 IU/L 0-40 Not Available [facility] ([facility]) [address] [facility] [place], [address], 06/15/2018 08:48:05 06/14/20 18 06/15/2018 CMP, serum or plasm a ALT (SGPT) 26 IU/L 0-32 Not Available [facility] ([facility]) [address] [place], [address], 06/15/2018 08:48:05 06/14/20 18 06/15/2018 lipid panel , serum cholesterol, total 143 mg/dL 100-19 9 Not Available [facility] ([facility]) [address] [place], [address], 06/15/2018 08:48:06 06/14/20 18 06/15/2018 lipid panel , serum triglyceride s 64 mg/dL 0-149 Not Available [facility] ([facility]) [address] [facility] [place], [address], 06/15/2018 08:48:06 06/14/20 18 06/15/2018 lipid panel , serum HDL cholesterol 61 mg/dL >39 Not Available [facility] ([facility]) [address] [facility] [place], [address], 06/15/2018 08:48:06 06/14/20 18 06/15/2018 lipid panel , serum VLDL cholesterol jose elias 13 mg/dL 5-40 Not Available [facility] ([facility]) [address] [facility] [place], [address], 06/15/2018 08:48:06 06/14/20 18 06/15/2018 lipid panel , serum LDL cholesterol calc 69 mg/dL 0-99 Not Available [facility] ([facility]) [address] [facility] [place], [address], 06/15/2018 08:48:06 06/14/20 18 06/15/2018 lipid panel , serum comment: BISQUE TILE BURNER Not Available [facility] ([facility]) [address] [facility] [place], [address], 06/15/2018 08:48:06 03/21/20 17 10/03/2014 colon oscop y proce dure (PROC ) No observ ation record ed. BARCODE Not Available 2016 14:16:21 12/16/19 18 12/16/2017 XR, chest , 2 view No observ ation record ed. [facility] [address] [place], [address], 03/17/2018 08:45:24 02/25/20 18 02/21/2018 US, feliberto sauceda id arter y No observ ation record ed. [facility] [address], [place], [id number], 03/17/2018 08:45:24 03/30/20 18 02/09/2015 MAMMO , jack carrera bilat eral No observ ation record ed. [email or web address] Not Available 09:03:27 03/30/20 18 12/10/2013 MAMMO jack bilat eral No observ ation record ed. [email or web address] Not Available 09:03:27 06/29/20 18 06/28/2018 MAMMO jack bilat eral [facility] Name: [facility] [place] [facility] Phys: Alfreda SRINIVASAN,Monico [place] [facility] [place] [address] : 1959 Age: 57 Sex: F Acct: [id number] Loc: G.MAMM PHONE #: [phone] Exam Date: 2017 Status : DEP CLI FAX #: Rad# [id number] Unit# [id number] Admit Date: 2017 EXAMS: CPT CODE: [id number] SCN DIG BREAST TOMOSY N IRINA 93790 BILATE RAL DIGITA L SCREEN ING MAMMOG AURELIO WITH CAD AND 3 D Tomosy nthesi s Person al histor y of Breast Cancer : None Family histor y of Breast Cancer : None Compla ints: None Compar gricel: Multip le prior studie s, the most recent of which is from [address] [place], [place] [address]a [facility] . TECHNI QUE: Bilate ral digita l mammog salma and CAD screen ing were perfor med by Ethan bentley RT. 3-D Tomosy nthesi s imagin g was also perfor med. FINDIN GS: These images demons trate a Type II breast parenc hymal patter n indica ting the breast s are mainly fatty replac ed with scatte red residu al glandu lar tissue . No worris ome lesion s are identi fied in either breast . IMPRES TANNER: Negati ve. Recomm end annual screen ing, regula r self breast examin ation and regula r clinic al breast exam. (CAT1) - CATEGO RY 1, NEGATI VE (1 YR)-1 YEAR -In the patien t with a palpab le abnorm ality, unexpl ained by breast imagin g, the palpab le abnorm ality should be manage d on a clinic al basis by the attend ing clinic christianne. -Breas flaco imagin g as a false negati ve rate of approx imatel y 15%. -Patie nt was notifi ed by mail of the result s of this examin ation. Patien t may be called if furthe r workup is indica narda. -The patien t's inform ation was entere d into a remind er system with a target due date for the next mammog aurelio. -This mammog aurelio was review ed by a radiol ogist and CAD. Electr onical ly Signed by Zechariah Mcallister on 2017 at 1911 Report ed and signed by: KAYLYN Mcallister M.D. PAGE 1 Signed Report (RADHA NUED) [facility]: [facility] Phys: Alfreda SRINIVASAN,Monico Valdezvital[place] [facility] [place] [address] : 1959 Age: 57 Sex: F Acct: [id number] Loc: G.MAMM PHONE #: [phone] Exam Date: 2017 Status : DEP CLI FAX #: Rad# [id number] Unit# [id number] Admit Date: 2017 EXAMS: CPT CODE: [id number] SCN DIG BREAST TOMOSY N IRINA [id number] CC: Eliezer Gant MD Dictat ed Date/T nguyen: 2017 (1910) Techno logist : ETHAN Bentley Transc ribed Date/T nguyen: 2017 (1910) Transc riptio nist: DR.HAR AMY Shafer onic Signat ure Date/T nguyen: 2017 (1910) Printe d Date/T nguyen: 2017 (1224) BATCH NO: N/A PAGE 2 Signed Report CC'ed Logic: Orderi ng Provid er: ALFREDA WAGGONER Attend ing Provid er: ALFREDA WAGGONER Referr ing Provid er: ALFREDA WAGGONER Consul ting Provid er: ALFREDA WAGGONER [address] , [place], [address], 06/29/2018 13:35:00 Result Notes Documentation Provider Name and Address Organization Details Recorded Time Mammo, Screening, Bilateral : [facility] Ce Name: NYJACKMYAH [facility] Phys: Alfreda SRINIVASAN,[place] [address] : 1960 Age: 57 Sex: F Acct: [id number] Loc: Yvonne.MAMM PHONE #: Exam Date: 06/20/2018 Status: DEP CLI FAX #: Rad# [id number] Unit# [id number] Admit Date: 06/20/2018 EXAMS: CPT CODE: [id number] SCN DIG BREAST TOMOSYN IRINA 63852 BILATERAL DIGITAL SCREENING MAMMOGRAM WITH CAD AND 3 D Tomosynthesis Personal history of Breast Cancer: None Family history of Breast Cancer: None Complaints: None Comparison: Multiple prior studies, the most recent of which is from 02/07/15 [facility]. TECHNIQUE: Bilateral digital mammography and CAD screening were performed by Ethan COREY. 3-D Tomosynthesis imaging was also performed. FINDINGS: These images demonstrate a Type II breast parenchymal pattern indicating the breasts are mainly fatty replaced with scattered residual glandular tissue. No worrisome lesions are identified in either breast. IMPRESSION: Negative. Recommend annual screening, regular self breast examination and regular clinical breast exam. (CAT1) - CATEGORY 1, NEGATIVE (1 YR)-1 YEAR -In the patient with a palpable abnormality, unexplained by breast imaging, the palpable abnormality should be managed on a clinical basis by the attending clinician. -Breast imaging as a false negative rate of approximately 15%. -Patient was notified by mail of the results of this examination. Patient may be called if further workup is indicated. -The patient's information was entered into a reminder system with a target due date for the next mammogram. -This mammogram was reviewed by a radiologist and CAD. at 1911 Reported and signed by: EUGENE LABOY M.D. PAGE 1 Signed Report (CONTINUED) [facility] Ce Name: MYAH NY [facility] Phys: Alfreda SRINIVASAN,[place] [address] : 1960 Age: 57 Sex: F Acct: [id number] Loc: G.MAMM PHONE #: Exam Date: 06/20/2018 Status: DEP CLI FAX #: Rad# [id number] Unit# [id number] Admit Date: 06/20/2018 EXAMS: CPT CODE: [id number] SCN DIG BREAST TOMOSYN IRINA 94344 CC: Eliezer Gant MD Dictated Date/Time: 06/28/2018 (1910) Technologist: ETHAN NIX Transcribed Date/Time: 06/28/2018 (1910) Office Automation Clerk: Electronic Signature Date/Time: 06/28/2018 (1910) Printed Date/Time: 06/29/2018 (1223) BATCH NO: N/A PAGE 2 Signed Report CC'ed Logic: Ordering Provider: ALFREDA WAGGONER Attending Provider: ALFREDA WAGGONER Referring Provider: ALFREDA WAGGONER Consulting Provider: ALFREDA Delgado null, [place] - [facility] 06/29/2018 13:35:00 Problems Name Problem SNOMED Code Status Onset Date Resolution Date Notes Provider Name and Address Organization Details Recorded Time Anxiety 22962660 Active 2015 Crystal Sandy null, [place] - [facility] 8 08:09:36 Coronary arterioscle rosis 80845882 Active 2015 Crystal Sandy null, [place] - [facility] 8 08:09:36 Dyslipidemi a 035370657 Completed 201503/21/2017 Rhonda Sauceda null, [place] - [facility] 7 08:21:18 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 Crystal Sandy null, [place] - [facility] 8 08:09:36 Needs influenza immunizatio n 579531768 Completed 201509/30/2017 Sabina Flanagan RN [address], [place], [address], [place] - [facility] 7 13:22:21 Renewal of prescriptio n Completed 201509/30/2017 Sabina Flanagan RN [address], [place], [address], [place] - [facility] 7 13:22:16 Mixed hyperlipide adam 308505711 Active 2016 Crystal Sandy null, [place] - [facility] 8 08:09:36 History of splenectomy 545252032 Active 2016 Crystal Sandy null, [place] - [facility] 8 08:09:36 History of cardiac surgery 773570002 Active 2016 Crystal Sandy null, [place] - [facility] 8 08:09:36 Edema 348280974 Active 2017 Crystal Sandy null, [place] - [facility] 8 08:09:36 Problem Notes None recorded. Procedures Surgical History Date Name Laterality Status Provider Name and Address Organization Details Recorded Time Irrigation of bladder completed Crystal Sandy [place] - [facility] 11/12/2016 08:56:23 Breast Biopsy completed Crystal Sandy [place] - [facility] 11/12/2016 08:56:31 Breast Lumpectomy completed Crystal Sandy [place] - [facility] 11/12/2016 09:00:05 Breast Lumpectomy completed Crystal Sandy [place] - [facility] 11/12/2016 09:00:13 Tubal Ligation completed Crystal Sandy [place] - [facility] 11/12/2016 09:00:18 Hysterectomy, Total laparoscopic completed Rhonda Solerhop [place] - [facility] 03/21/2017 08:15:41 Imaging Results None recorded. Procedure Notes None recorded. Medical Equipment None Reported. Allergies Allergen ID Allergen Name Allergen Category Reaction Reaction Severity Criticality Documentation Date Start Date Code Code System Note Provider Name and Address Organization Details Recorded Time 35129 codeine medicatio n vomiting Not available Not available 09/03/20162007 2670 RxNorm React ion: Nause a/vom iting ; Comme nt: codei ne; Not Available [facility] 6 09:04:19 Medications Name Sig Start Date Stop Date Status Note LastModified by Organization Details LastModified Time cyclobenz aprine 10 mg tablet take 1 tablet by oral route 3 times a day as needed 11/24 completed cycloben zaprine 10 mg oral tablet;R ecorded Status: Recorded on: 07/24/20 10 2:30PM;D iscontin ued Status: Disconti nued on: 11/24/20 11 10:22AM; User: lissa; Est. Completi on: 01/20/20 11;Indic ation: Muscle Spasm - ([phone]) Not Available Not Available Not Available amoxicill in 500 mg capsule take 1 capsule (500 mg) by oral route 3 times per day for 10 days 07/24 completed amoxicil debra 500 mg oral capsule; Recorded Status: Recorded on: 04/27/20 12 10:06AM; Disconti nued Status: Disconti nued on: 07/24/20 12 8:56AM;U ser: vesth;Es t. Completi on: 05/07/20 12 Not Available Not Available Not Available furosemid e 40 mg tablet Take 1 tablet every day by oral route for 30 days. active Not Available Not Available No t Available atorvasta tin 40 mg tablet take 1 tablet by oral route q pm active Not Available Not Available No t Available atorvasta tin 80 mg tablet take 1 tablet by oral route q pm 03/17 completed Not Available Not Available Not Available atorvasta tin 20 mg tablet Take 1 tablet every day by oral route. 09/16 completed Not Available Not Available Not Available ibuprofen 800 mg tablet take 1 tablet by oral route 3 times a day as needed for 30 days 08/04 completed ibuprofe n 800 mg oral tablet;P rescribe Status: Prescrib ed on: 07/05/20 16 10:56AM; User: neuss;Es t. Completi on: 08/04/20 16;Pharm acyVerif ied: 07/05/20 16 10:56AM Not Available Not Available Not Available hydrocodo ne 5 mg-acetam inophen 325 mg tablet 09/16 completed Not Available Not Available Not Available clopidogr el 75 mg tablet take 1 tablet (75 mg) by oral route once daily 09/16 completed Not Available Not Available Not Available ciproflox acin 250 mg tablet 11/12 completed Not Available Not Available Not Available aspirin 81 mg tablet,de layed release 09/16 completed Not Available Not Available Not Available spironola ctone 25 mg tablet Take 2 tablets every day by oral route. active Not Available Not Available No t Available oxycodone -acetamin ophen 5 mg-325 mg tablet take 1 tablet by oral route every 6 hours as needed for 7 days 07/22 completed oxycodon e-acetam inophen 5-325 mg oral tablet;R ecorded Status: Recorded on: 05/23/20 15 11:05AM; Disconti nued Status: Disconti nued on: 07/22/20 15 8:55AM;U ser: ramon;Fannie Polo on: 05/30/20 15;Indic ation: Pain - (16.3899 00) Not Available Not Available Not Available Lortab 10 mg-500 mg tablet take 1 tablet by oral route 3 times a day as needed for 14 days 11/24 completed Lortab 10-500 mg oral tablet;R ecorded Status: Recorded on: 07/27/20 10 4:39PM;D iscontin ued Status: Disconti nued on: 11/24/20 11 10:22AM; User: rosmery Polo on: 08/10/20 10;Indic ation: Pain - (16.7809 00) Not Available Not Available Not Available Nitrostat 0.4 mg sublingua l tablet place 1 tablet (0.4 mg) by buccal route at the first sign of an attack; no more than 3 tablets are recommen ded within a 15 minute period. for 1 day 09/16 completed Not Available Not Available Not Available Flagyl 500 mg tablet 1 po tid x 7 04/24 completed Flagyl 500 mg oral tablet;R ecorded Status: Recorded on: 09/17/20 09 2:02PM;D iscontin ued Status: Disconti nued on: 04/24/20 10 11:18AM; User: Sal[place] t. Completi on: 09/05/20 09 Not Available Not Available Not Available hydrocodo ne 7.5 mg-acetam inophen 325 mg tablet 11/12 completed Not Available Not Available Not Available Questran 4 gram oral powder use as directed by oral route daily 04/02 completed Questran 4 gram oral powder;R ecorded Status: Recorded on: 07/24/20 12 4:19PM;D iscontin ued Status: Disconti nued on: 04/02/20 13 12:07PM; User: ramon;Fannie Polo on: 01/20/20 13;Indic ation: Chronic Diarrhea - (787.91) Not Available Not Available Not Available pantopraz ole 40 mg tablet,de layed release 09/16 completed Not Available Not Available Not Available Vitamin B-12 250 mcg tablet Take 2 tablets by oral route. active Not Available Not Available No t Available promethaz ine 25 mg tablet take 1 tablet by oral route every 4 to 6 hours as needed for 7 days 04/02 completed prometha zine 25 mg oral tablet;R ecorded Status: Recorded on: 04/27/20 12 10:06AM; Disconti nued Status: Disconti nued on: 04/02/20 13 11:24AM; User: Jamila Polo on: 05/04/20 12;Indic ation: Nausea and Vomiting - (16.7870 10) Not Available Not Available Not Available indometha johana 50 mg capsule take 1 capsule (50 mg) by oral route 2-3 times per day with food 11/24 completed indometh acin 50 mg oral capsule; Prescrib e Status: Prescrib ed on: 06/02/20 15 3:52PM;D iscontin ued Status: Disconti nued on: 11/24/20 15 9:26AM;U ser: neuss;Fannie myers Completi on: 06/16/20 15;Pharm acyVerif ied: 06/02/20 15 3:52PM Not Available Not Available Not Available omeprazol e 20 mg capsule,d elayed release take 1 capsule (20 mg) by oral route once daily before a meal 02/22 completed omeprazo le 20 mg oral capsule, delayed release( DR/EC);P rescribe Status: Prescrib ed on: 11/24/20 15 6:46PM;D iscontin ued Status: Disconti nued on: 02/23/20 16 10:59AM; User: ramon;Fannie myers Completrodney on: 05/22/20 16;Pharm acyVerif ied: 11/24/20 15 6:46PM Not Available Not Available Not Available aspirin 81 mg tablet take 1 tablet (81 mg) by oral route once daily 2009 active aspirin 81 mg oral tablet;R ecorded Status: Recorded on: 04/24/20 10 11:17AM; User: bishopk Not Available Not Available Not Available Valium 10 mg tablet take 1 tablet (10 mg) by oral route 3 times per day for 30 days 2017 active Valium 10 mg oral tablet;R ecorded Status: Recorded on: 11/24/20 15 10:00AM; User: ramon;Fannie sam. Completi on: 05/22/20 16 Not Available Not Available Not Available Lomotil 2.5 mg-0.025 mg tablet take 2 tablets (5 mg) by oral route once daily as needed for 7 days 07/24 completed Lomotil 2.5-0.02 5 mg oral tablet;R ecorded Status: Recorded on: 04/27/20 12 10:06AM; Disconti nued Status: Disconti nued on: 07/24/20 12 9:08AM;U ser: vesth;Fannie sam. Completi on: 05/04/20 12;Indic ation: Diarrhea - (16.7879 10) Not Available Not Available Not Available spironola ctone 50 mg tablet Take 1 tablet every day by oral route for 30 days. 06/14 completed Not Available Not Available Not Available ezetimibe 10 mg tablet take 1 tablet (10 mg) by oral route once daily for 30 days active Not Available Not Available No t Available metoprolo l tartrate 25 mg tablet take 1 tablet (25 mg) by oral route once daily 09/16 completed Not Available Not Available Not Available Amoxil one tid 07/24 completed amoxil 500 mg.;Kenneth rded Status: Recorded on: 04/27/20 12 10:15AM; Disconti nued Status: Disconti nued on: 07/24/20 12 8:56AM;U ser: kevin; Est. Completi on: 05/07/20 12;Indic ation: uti - (-5) Not Available Not Available Not Available Phenergan one q 4 hrs. prn n&v 07/24 completed phenerga n 25 mg.;comm ent: duplicat e;Record ed Status: Recorded on: 04/27/20 12 10:15AM; Disconti nued Status: Disconti nued on: 07/24/20 12 9:08AM;U ser: kevin; Est. Completi on: 04/30/20 12;Indic ation: vomiting - (-5) Not Available Not Available Not Available Lomotil one q 4 hrs. prn 07/24 completed lomotil standard ;Recorde d Status: Recorded on: 04/27/20 12 10:15AM; Disconti nued Status: Disconti nued on: 07/24/20 12 8:56AM;U ser: kevin; Est. Completi on: 05/01/20 12;Indic ation: cramping - (-5) Not Available Not Available Not Available Imodium Multi-Sym ptom Relief 2 mg-125 mg tablet take 1 tablet by oral route as directed 11/30 completed Imodium Multi-Sy mptom Relief 2-125 mg oral tablet;R ecorded Status: Recorded on: 07/24/20 12 9:08AM;D iscontin ued Status: Disconti nued on: 11/30/19 14 10:01AM; User: ramon;Es t. Completi on: 09/22/20 12;Indic ation: Diarrhea - (16.7879 10) Not Available Not Available Not Available Dulera 100 mcg-5 mcg/actua tion HFA aerosol inhaler 09/16 completed Not Available Not Available Not Available Certavite -Antioxid ant 18 mg-400 mcg tablet 09/16 completed Not Available Not Available Not Available Spiriva Respimat 2.5 mcg/actua tion solution for inhalatio n 09/16 completed Not Available Not Available Not Available multivit- min no.53-[id number]-Q10 1 po qd active Not Available Not Available Not Available Fluarix Quad [id number] (PF) 60 mcg (15 mcg x 4)/0.5 mL IM syringe 09/30 completed Not Available Not Available Not Available Vitals Date Recorded Body height Body mass index (BMI) Body weight Heart rate Oxygen saturation Respiratory rate Body temperature Systolic And Diastolic Provider Name and Address Organization Details Last Updated DateTime 8 160.02 cm 29.2 kg/m2 77957.7 4 g 68 /min 95 % 18 /min 98.2 [degF] 122/70 mm[Hg] [employer] [place] - [facility] 8 08:23:33 Date Recorded Body height Body mass index (BMI) Body weight Heart rate Systolic And Diastolic Provider Name and Address Organization Details Last Updated DateTime 03/17/2018 160.02 cm 30.6 kg/m2 37396.48 g 70 /min 118/64 mm[Hg] [facility] 03/17/2018 08:31:35 Date Recorded Body height Body weight Body mass index (BMI) Heart rate Respiratory rate Systolic And Diastolic Provider Name and Address Organization Details Last Updated DateTime 7 160.02 cm 09008 g 27.8 kg/m2 68 /min 18 /min 134/72 mm[Hg] [facility] 08:11:20 Date Recorded Body height Body mass index (BMI) Body weight Heart rate Oxygen saturation Respiratory rate Systolic And Diastolic Provider Name and Address Organization Details Last Updated DateTime 8 160.02 cm 29.2 kg/m2 04452.7 4 g 76 /min 98 % 18 /min 118/64 mm[Hg] [employer] [place] - [facility] 8 08:16:43 Date Recorded Body height Body mass index (BMI) Body weight Heart rate Respiratory rate Systolic And Diastolic Provider Name and Address Organization Details Last Updated DateTime 7 160.02 cm 26.7 kg/m2 37143.4 5 g 72 /min 18 /min 128/74 mm[Hg] Rhonda Sauceda [facility] 7 08:31:04 Social History Question Answer Notes LastModified by Organizat ion Details LastModified Time Tobacco Smoking Status Former Smoker Sabina Delgado null, [place] - [facility] 11/12/2016 08:53:03 Able To Swim? Yes Information not available 11/12/2016 Do You Have An Advance Directive? No Information not available 11/12/2016 Do You Wear A Helmet When Biking? No Information not available 11/12/2016 Are You Blind Or Do You Have Difficulty Seeing? No Information not available 11/12/2016 Are You Deaf Or Do You Have Serious Difficulty Hearing? No Information not available 11/12/2016 Swimming/diving No Informati on not available 11/12/2016 Hard Of Hearing Or Deaf In One Or Both Ears? No Information not available 11/12/2016 Legally Blind In One Or Both Eyes? No Information no t available 11/12/2016 What Was The Date Of Your Most Recent Tobacco Screening? 06/14/2018 Information not available 06/20/2019 What Is Your Relationship Status? Single Information not available 11/12/2016 Seat Belts Used Routinely Yes Information not available 11/12/2016 Are You Sexually Active? Yes Information not available 11/12/2016 Smoke Alarm In Home Yes Information not available 11/12/2016 General Stress Level Medium Information not available 11/12/2016 Do You Use Sunscreen Routinely? No Information not available 11/12/2016 Do You Have Difficulty Walking Or Climbing Stairs? No Information not available 11/12/2016 Sex: Unknown Functional Status Question Answer Note LastModified by Organization D etails LastModified Time What is your level of alcohol consumption? None Information not available 11/12/2016 Are you currently employed? No Information not available 11/12/2016 Do you have difficulty doing errands alone? No Information not available 11/12/2016 Are you able to care for yourself independently? Yes Information not available 11/12/2016 Do you have difficulty dressing, bathing, grooming, or toileting? No Information not available 11/12/2016 Mental Status Question Answer Note LastModified by Organization D etails LastModified Time Do you have difficulty concentrating, remembering or making decisions? No Information no t available 11/12/2016 Family History Relationship Description Onset Age of this Age Resolved Age Notes LastModified by Organization Details LastModified Time Father History of surgery bypass Not available 2015 08:51:30 Father Coronary arterioscler osis Not available 2015 08:51:42 Father Type 2 diabetes mellitus Not available 2015 08:52:10 Father Family history of malignant neoplasm of prostate Not available 2015 08:52:40 Mother Coronary arterioscler osis Not available 2015 08:51:43 Mother Crohn's disease Not available 2015 08:52:01 Mother Cardiac pacemaker procedure Not available 2015 08:52:26 Sister Crohn's disease Not available 2015 08:52:01 Medical History Condition Response Anxiety Disorder Y Coronary Artery Disease Y Hyperlipidemia Y Other Gynecological HistoryNo gynecological history recorded. Obstetrics History GPAL:G 0 P 0 0 0 0 Immunizations Vaccine Type Date Status Note Provider Nam e and Address Organization Details Recorded Time influenza, unspecified formulation 4 completed Not Available [facility] 12/29/2019 02:21:51 Pneumococcal conjugate PCV 13 8 completed Not Available [facility] 12/15/2019 03:54:49 influenza, unspecified formulation 4 completed Not Available [facility] 12/29/2019 02:21:57 influenza, unspecified formulation 5 completed Not Available [facility] 12/29/2019 02:21:57 Influenza, split virus, quadrivalent, preservative 7 completed KASHIF Parekh - [facility] 08/30/2018 08:09:36 Influenza, split virus, quadrivalent, preservative 6 completed Not Available [facility] 12/15/2019 03:54:20 Past Encounters Encounter ID Performer Location Encounter Start Date Encounter Closed Date Diagnosis/Indication Diagnosis SNOMED-CT Code Diagnosis ICD10 Code Diagnosis IMO Codes Diagnosis Note [id number] [facility] [address] [place] [address] 03/24/2012 00:00:00 [id number] [facility] [address] [place] [address] 05/12/2009 00:00:00 [id number] [facility] [address] [place] [address] 08/29/2009 00:00:00 [id number] [facility] [address] [place] [address] 12/29/2009 00:00:00 [id number] [facility] [address] [place] [address] 04/24/2010 00:00:00 [id number] [facility] [address] [place] [address] 07/24/2010 00:00:00 [id number] [facility] [address] [place] [address] 11/24/2010 00:00:00 [id number] [facility] [address] [place] [address] 01/29/2008 00:00:00 [id number] [facility] [address] [place] [address] 03/29/2008 00:00:00 [id number] [facility] [address] [place] [address] 07/30/2008 00:00:00 [id number] [facility] [address] [place] [address] 10/09/2008 00:00:00 [id number] [facility] [address] [place] [address] 03/04/2009 00:00:00 [id number] [facility] [address] [place] [address] 03/22/2011 00:00:00 [id number] [facility] [address] [place] [address] 07/21/2011 00:00:00 [id number] [facility] [address] [place] [address] 11/24/2011 00:00:00 [id number] [facility] [address] [place] [address] 04/27/2012 00:00:00 [id number] [facility] [address] [place] [address] 07/24/2012 00:00:00 [id number] [facility] [address] [place] [address] 12/06/2012 00:00:00 [id number] [facility] [address] [place] [address] 04/02/2013 00:00:00 [id number] [facility] [address] [place] [address] 08/01/2013 00:00:00 [id number] [facility] [address] [place] [address] 11/30/2013 00:00:00 [id number] [facility] [address] [place] [address] 10/28/2014 00:00:00 [id number] [facility] [address] [place] [address] 12/25/2014 00:00:00 [id number] [facility] [address] [place] [address] 11/30/2013 00:00:00 [id number] [facility] [address] [place] [address] 02/26/2014 00:00:00 [id number] [facility] [address] [place] [address] 05/28/2014 00:00:00 [id number] [facility] [address] [place] [address] 08/26/2014 00:00:00 [id number] [facility] [address] [place] [address] 10/14/2014 00:00:00 [id number] [facility] [address] [place] [address] 10/28/2014 00:00:00 [id number] [facility] [address] [place] [address] 03/26/2015 00:00:00 [id number] [facility] [address] [place] [address] 05/23/2015 00:00:00 [id number] [facility] [address] [place] [address] 07/22/2015 00:00:00 [id number] [facility] [address] [place] [address] 11/24/2015 00:00:00 [id number] [facility] [address] [place] [address] 02/23/2016 00:00:00 [id number] [facility] [address] [place] [id number] 05/21/2016 00:00:00 [id number] [facility] [address] [place] [address] 05/21/2016 00:00:00 [id number] [facility] [address] [place] [address] 05/23/2015 00:00:00 [id number] Eliezer Gant MD [address] [place] [address] 11/12/2016 09:03:15 11/12/2016 09:57:38 Renewal of prescription 391462571 Z76.0 Hyperlipidemia 10217079 E78.5 Injury of spleen 8635750 4 S36.00XD Dyslipidemia 953573838 E 78.5 Anxiety 00911426 F41.9 Coronary arteriosclerosis 51180503 I25.10 Needs infl uenza immunization 073971523 Z23 [id number] Eliezer Gant MD 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 [address] 09/16/2017 07:54:16 09/16/2017 11:02:46 Coronary arteriosclerosis 80977633 I25.10 Mixed hyperlipidemia 267 665297 E78.2 Medication monitoring 39 0187185 Z51.81 [id number] Eliezer Gant MD [address] [place] [address] 12/16/2017 07:54:59 12/16/2017 10:07:58 Mixed hyperlipidemia 532884543 E78.2 History of splenectomy 149297749 Z90.81 Anxiety 72428540 F41.9 History of cardiac surgery 651408549 Z98.890 Body mass index 25-29 - overweight 833611275 Z68.29 Upper resp iratory infection 84842937 J06.9 Viral screening 41377087 4 Z11.59 Renewal of prescription 697640042 Z76.0 Administra tion of pneumococcal vaccine 29472717 Z23 [id number] Eliezer Gant MD [address] [address] 03/17/2018 07:58:54 03/17/2018 08:51:38 Mixed hyperlipidemia 324996303 E78.2 History of cardiac surgery 490637913 Z98.890 History of splenectomy 802588454 Z90.81 Anxiety 16901552 F41.9 Body mass index 30+ - obesity 063535018 Z68.39 [id number] Eliezer Gant MD [address] [place] [address] 06/14/2018 07:52:07 06/14/2018 09:42:06 General examination of patient 090436203 Z00.00 Fatigue 21172751 R53.83 History of splenectomy 551701293 Z90.81 Mixed hyperlipidemia 267 759937 E78.2 Anxiety 30871726 F41.9 Coronary arteriosclerosis 87109082 I25.10 History of cardiac surgery 095659177 Z98.890 Edema 872466313 R60.9 Health Concerns Section Related Observation LastModified by Organization Detai ls LastModified Time None Recorded Concern Status LastModified by Organization Details LastModified Time None Recorded Advance Directives Directive N: Payers Insurance Date Sequence Insurance Name Policy Number Policy Higgins Covered Member ID Higgins Member ID Guarantor Name 08/30/2018 1 [employer] - [employer] [place] (MEDICA[place] REPLACEMENT - HMO) [place] Myah Ny [id number] Myah Ny 08/30/2018 [place] [facility] WRAP BILLING (MEDICAID) [place] Myah Ny [id number] Myah Ny 01/25/2017 1 UNSPECIFIED REMIT PAYOR Myah Ny Notes Date Note Type Note Provider Name and Address Organization Details Recorded Time 7 text/html Generalized Anxiety DisorderReported by PatientHPIFor severity, patient reportsmild. For modifying factors, patient reportsother medications,exercise, andrest. For associated symptoms, patient reportsno difficulty concentrating,no difficulty controlling worry,no difficulty swallowing,no anxiety,no excessive sweating,no hot flashes,no palpitations,no shortness of breath,no nausea,no diarrhea,no fatigue,no irritability,no muscle tension,no muscle aches,no trembling,no twitching,no headaches, andno restlessness. For onset/timing, (years). For context, (anxiety). Care Management - HyperlipidemiaReported by PatientHPIFor prognosis, patient reportsexpected outcome: improveandprognosis: good. For self care, patient reportsrecent hospitalization/er visit? no(fating labs today). For complications, patient reportsno coronary artery disease,no heart attack, andno cardiovascular disease. For control, (was elevated last check after going off meds to repeat today after dietary modifications). 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 For self care, patient reportsnot under emotional stress. For severity, patient reportssymptoms are improvinganddoes not interfere with daily activities. For associated symptoms, patient reportsno chest pain,no shortness of breath,no left arm pain,no back pain,no neck pain,no left shoulder pain,no right shoulder pain,no numbness, andno sweats. Care Management - HyperlipidemiaReported by PatientHPIFor control, patient reportsnot at goal(here for cholesterol check today). For complications, patient reportscoronary artery disease(recent cabg x 4 vessel). For prognosis, patient reportsexpected outcome: improveandprognosis: good. Koko Patrick MD [address] [place] [address], [phone], [facility] - [facility] 10/11/2017 10:35:15 8 text/html Annual wellness exam. Eliezer Gant [place], [place] - [facility] 01/23/2018 12:30:24 8 text/html Musculoskeletal PainReported by PatientHPIFor severity, patient reportssame. For duration, patient reportspresent for >12 months. For alleviating factors, patient reportsrest. For aggravating factors, patient reportsmovement/positioning . For associated symptoms, patient reportsno feverandno weak limbs. For location, (chronic joint and muslle pain). For quality, (varies). For timing, (chronic with worsening she feel on lipitor). Anxiety/DepressionReported by PatientHPIFor severity, patient reportsdenies suicidal ideations,able to maintain relationships, anddoes not interfere with activities of daily living. For context, patient reportsno major life stressors. For modifying factors, patient reportsmedications as directed. For associated symptoms, patient reportsdenies homicidal ideations,no significant weight gain,no significant weight loss,no visual/auditory hallucinations,no delusions,no shortness of breath,mood good,no anxiety,no crying spells,no panic,no isolation,sleeping well,appetite good,no apathy, andmaintaining functionality. For quality, (stable on medication). For duration, (stble on medication). Care Management - HyperlipidemiaReported by PatientHPIFor complications, patient reportscoronary artery disease. For prognosis, patient reportsexpected outcome: stabilizeandprognosis: guarded. For control, patient reportsusually well controlled. For self care, (no medication here). KASHIF Munroe [facility] 03/17/2018 09:02:24 8 text/html Here for annual wellness exam KASHIF Munroe [facility] 06/14/2018 09:37:22 OBGyn Episode No OBEpisode recorded.
--- NOTE | 2025-10-22 10:30 | MR_ITS ---
APPROVED REPORT Construction Operations Manager: CLINICAL INDICATION Cardiomyopathy evaluation TECHNIQUE Image Acquisition: Cardiac magnetic resonance (CMR) was performed on Siemens Espree MRI 1.5T scanner. Software platform sequences were performed using the Siemens FastConnect MR B19 platform. A set of three-plane, low-resolution, large [id number] localizers were initially acquired. Then axial, coronal, sagittal TrueFISP, as well as axial HASTE images, were obtained. These were followed by gated TrueFISP breathold cinematic sequences obtained in the short axis with 8 mm slices and 2 mm gaps, 2-chamber (vertical long axis), 3-chamber, 4-chamber (horizontal long axis). A bolus of contrast was injected intravenously with first-pass sequences obtained in the short axis and four-chamber planes. After approximately 10 minutes, a TI standard machine stitcher sequence was performed to determine the optimal TI time. Using the optimized TI time, delayed contrast enhancement segmented inversion???recovery TurboFLASH sequences were obtained in the short axis, 2-chamber, 3-chamber, and 4-chamber projections. 2D-velocity phase mapping was performed. Functional parameters were calculated by offline analysis on an independent workstation ([employer], [employer]). Contrast: ProHance??? (Gadoteridol) FINDINGS MORPHOLOGY AND FUNCTION Left ventricle: The left ventricle is normal in size. The indexed left ventricular end-diastolic volume (LVEDVi) is 72 ml/m2 (reference range 57-105 ml/m2 in males, 56-96 ml/m2 in females). Mild reduction in left ventricular systolic function is present. There is normal left ventricular wall thickness. There are no regional wall motion abnormalities noted. LVEF is calculated at 40.8% (reference range 57-77%). Right ventricle: The right ventricle is normal in size. The indexed right ventricular end-diastolic volume (RVEDVi) is 69 ml/m2 (reference range 61-121 ml/m2 in males, 48-112 ml/m2 in females). Low-normal right ventricular systolic function is present. RVEF is calculated at 50.0% (reference range 52-72% in males, 51-71% in females). Atria: The left atrium is normal in size. The maximum indexed left atrial volume is 27 ml/m2 (reference range 26-52 ml/m2 in males, 27-53 ml/m2 in females). The right atrium is normal in size. The maximum indexed right atrial volume is 18 ml/m2 (reference range 18-90 ml/m2). Aorta: The diameter of the aortic annulus is normal, measuring 24 mm (coronal view reference range 21-30 mm in males, 19-27 mm in females). The diameter of the aortic sinus is normal, measuring 25 mm (coronal view reference range 25-42 mm in males, 24-36 mm in females). The diameter of the sinotubular junction is normal, measuring 27 mm (coronal view reference range 18-32 mm in males, 18-28 mm in females). The diameters of the ascending and descending thoracic aorta are normal. Main pulmonary artery: The main pulmonary artery diameter is normal. Pericardium: The pericardial thickness is normal. The pericardial thickness measures 1.5 mm (normal < 4.0 mm). There is no pericardial effusion. VALVES The valvular morphologies in the visualized sequences appear normal. There is no significant valvular stenosis or regurgitation of the mitral, aortic, tricuspid, or pulmonic valve noted visually. Systolic anterior motion of the mitral valve is not visualized. Ratio of pulmonary to systemic flow, Qp:Qs ratio = 1.3 (normal < or = 1.2, hemodynamically significant shunt > 1.5), demonstrating no evidence of hemodynamically significant shunt. TISSUE CHARACTERIZATION Resting Perfusion: Normal myocardial blood flow at rest. No evidence of resting hypoperfusion. Myocardial Fibrosis and/or edema: There is a small focus of subendocardial late gadolinium enhancement present in the basal lateral LV wall, consistent with presence of myocardial scarring. The LGE occupies 25% (i.e. < 50%) of the total myocardial thickness, suggestive of presence of viability in the corresponding region. T2-weighted imaging demonstrates no evidence of myocardial edema or inflammation. OTHER No other significant findings are noted. However, this exam is focused on the cardiac structure and function. IMPRESSION Normal LV size with mild reduction in LV systolic function. LVEDVi= 72 ml/m2 and LVEF= 40.8%. Normal RV size with low-normal RV systolic function. RVEDVi= 69 ml/m2 and RVEF= 50.0%. No atrial enlargement. Small focus of subendocardial late gadolinium enhancement present in the basal lateral LV wall, consistent with presence of old myocardial infarct in the LCX territory. The LGE occupies 25% (i.e. < 50%) of the total myocardial thickness, suggestive of presence of viability in the corresponding region. Perfusion analysis demonstrates normal blood flow at rest with no evidence of resting hypoperfusion. Ratio of pulmonary to systemic flow, Qp:Qs ratio = 1.3 (normal < or = 1.2, hemodynamically significant shunt > 1.5), demonstrating no evidence of hemodynamically significant shunt. 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 In the setting of known CAD s/p CABG with partial recovery and ongoing GDMT, ischemic cardiomyopathy is likely a contributor to the cardiomyopathy. Howevere, as the severity of LGE is minimal and localized in the lateral LV wall, the cardiomyopathy is likely mixed (both ischemic and non-ischemic). Continue GDMT as recommended. COMPARISON None CRITICAL RESULT None COMMUNICATION The above findings were relayed to the patient at the time of the routine outpatient cardiology follow-up visit, prior to dictation of this report. The findings of this cardiac MR were reviewed, reported, and signed by Robel Hunter MD (Testboard Operator). Conclusion Electronically signed by : Linsey Hunter MD 10/30/2025 15:40:08
[2025-10-22] MEDS: 0.9 % SODIUM CHLORIDE 50 ML VIAL 20 ML IV (12:29)
[2025-10-22] MEDS: GADOTERIDOL INJ 20ML SYRINGE 15 ML IV (12:29)
[2025-10-22] MEDS: SODIUM CHLORIDE 0.9% 10ML SYR (RAD ONLY) 10 ML IV (12:29)
== END 2025-10-22 23:59 | disposition home or self-care (01) ==
LOC: RAD 09:47
PROVIDERS: PCP Family Medicine; Visit Provider Nurse Practitioner Family
DX: I25.5 Ischemic cardiomyopathy (principal); I50.20 Unspecified systolic (congestive) heart failure; R93.1 Abnormal findings on diagnostic imaging of heart and coronary circulation; I25.10 Atherosclerotic heart disease of native coronary artery without angina pectoris; Z95.1 Presence of aortocoronary bypass graft
CPT/HCPCS: 75561; A9576